=== PATIENT | female | born 1955 | race Caucasian/White ===

== ENCOUNTER 2017-12-18 13:00 | Observation (INO) ==
[2017-12-18 14:24] LABS: Basophils % 0.7 %; Eosinophils # 0.1 K/mcL (0.0-0.6); Eosinophils % 1.8 %; Hemoglobin 13.6 g/dL (11.5-15.4); Immature Granulocytes % 0.3 % (0-4); Lymphocytes # 1.8 K/mcL (0.6-4.6); Lymphocytes % 29.3 %; Mean Corpuscular HGB Conc 32.4 g/dL (31.6-35.5); Mean Corpuscular Hemoglobin 28.6 pg (28.0-33.3); Mean Corpuscular Volume 88.4 fL (83.0-100.0); Mean Platelet Volume 10.8 fL (9.4-12.4); Monocytes # 0.5 K/mcL (0.0-1.3); Monocytes % 7.6 %; Neutrophils # 3.7 K/mcL (1.6-8.9); Platelet Count 149 K/mcL (140-400); Red Blood Count 4.75 M/mcL (3.82-4.97); Red Cell Distribution Width 12.4 % (11.5-14.5); Segmented Neutrophils % 60.3 %
[2017-12-18 14:30] LABS: Troponin I < 0.03 ng/mL (< 0.04)
[2017-12-18 14:31] LABS: Alanine Aminotransferase 22 Units/L (7-52); Albumin 3.8 g/dL (3.5-5.7); Alkaline Phosphatase 137 Units/L (34-104); Aspartate Amino Transferase 26 Units/L (13-39); BUN/Creatinine Ratio 18 (6-26); Bilirubin,Total 0.5 mg/dL (0.3-1.0); Blood Urea Nitrogen 21 mg/dL (8-23); Calcium 9.4 mg/dL (8.6-10.3); Carbon Dioxide 26 mEq/L (23-29); Chloride 99 mEq/L (98-107); Globulin 3.7 g/dL (2.4-3.5); Glucose 167 mg/dL (70-105); Osmolality,Calculated 283 (280-300); Potassium 4.9 mEq/L (3.5-5.1); Sodium 133 mEq/L (136-145); Total Protein 7.5 g/dL (6.4-8.9); eGFR For African Americans 56 (> 60); eGFR For Non-African Americans 46 (> 60)
[2017-12-18 14:36] LABS: INR 1.1; Prothrombin Time 11.4 Seconds (9.4-12.1)
[2017-12-18 14:38] LABS: Activated Partial Thrombo Time 29.4 Seconds (26.0-36.0)
--- NOTE | 2017-12-18 16:53 | Emergency Department Note ---
Disposition Clinical Impression: Angina at rest, Lung nodule Chest pain Qualifiers: Chest pain type: unspecified Qualified Code(s): R07.9 - Chest pain, unspecified Disposition: Admitted As Inpatient Condition: Fair Referrals: Doug Spence DO [Primary Care Provider] - Forms: ED Satisfaction Letter Time of Disposition: 16:52 Chest Pain HPI - General Chief Complaint: ED Chest Pain Stated Complaint: chest pain Time Seen by Provider: 12/18/17 16:09 Source: patient, family Limitations: no limitations Vital Signs Reviewed: Yes Nursing Notes Reviewed: Yes - History of Present Illness HPI Narrative: Patient arrives from her PCPs office with chest pain intermittent for the past one week. She states this started after she had a heat exertion. Pain is both present at rest and with exertion. She has a history of multivessel CABG. She denies feeling short of breath. She states these are similar symptoms that preceded her CABG 2 years ago Pt complaint: chest pain Onset (ago): day(s) Duration: intermittent Onset: during rest, during exertion Pain Location: substernal Severity: moderate Severity scale (1-10): 4 Quality: tightness Pain Radiation: none Improves with: nitroglycerin Worsens with: exertion Treatments prior to arrival chest pain: nitroglycerin - Related Data Home Medications Medication Instructions Recorded Confirmed Atorvastatin [Lipitor] 40 mg PO HS 03/22/15 11/14/17 Clopidogrel [Plavix] 75 mg PO DAILY 03/22/15 11/14/17 Gabapentin [Neurontin] 300 mg PO TID 03/22/15 11/14/17 Insulin Glargine,Hum.rec.anlog 60 unit SQ BID 03/22/15 11/14/17 [Lantus Solostar] Fluticasone Propionate [Flovent 12 gm IH BID 03/31/15 11/14/17 Hfa] Pramipexole [Mirapex] 0.25 mg PO HS 03/31/15 11/14/17 Zolpidem [Ambien] 10 mg PO HS 03/31/15 11/14/17 Alendronate Sodium 70 mg PO QWEEK 06/17/15 11/14/17 Aspirin Enteric Coated [Aspirin EC] 81 mg PO DAILY 03/25/17 11/14/17 Carvedilol 12.5 mg PO BID 03/25/17 11/14/17 Citalopram Hydrobromide 40 mg PO DAILY 03/25/17 11/14/17 [Citalopram HBr] Ergocalciferol (VITAMIN D2) 50,000 unit PO QWEEK 03/25/17 11/14/17 [Vitamin D2] Nitroglycerin [Nitrostat] 0.4 mg SL AD 03/25/17 11/14/17 Omeprazole [PriLOSEC] 40 mg PO DAILY 03/25/17 11/14/17 Insulin ASPART [NovoLOG] 15 - 30 unit SQ TIDWM 07/17/17 11/14/17 MethylPREDNISolone 4 mg PO DAILY 11/14/17 11/14/17 [MethylPREDNISolone Dose Pack] Previous Rx's Medication Instructions Recorded traMADol [Ultram] 50 mg PO Q6HR PRN #14 tablet 09/10/15 Meclizine [Antivert] 25 mg PO QID #30 tablet 11/14/17 Ondansetron ODT [Zofran ODT] 4 mg PO Q8HR #14 tab.rapdis 11/14/17 Allergies Allergy/AdvReac Type Severity Reaction Status Date / Time promethazine [From Phenergan] Allergy Confusion Verified 12/18/17 13:03 venlafaxine [From Effexor] Allergy Nausea Verified 12/18/17 13:03 All systems ED: reviewed and negative except as stated. Constitutional: Reports: as per HPI Eyes: Reports: as per HPI ENT ED: Reports: as per HPI Cardiovascular: Reports: chest pain Respiratory: Reports: as per HPI Gastrointestinal: Reports: nausea (When exposed to the heat) Genitourinary: Reports: as per HPI Musculoskeletal: Reports: as per HPI Integumentary: Reports: as per HPI Neurological: Reports: headache (When exposed to the heat) Psychiatric: Reports: as per HPI Endocrine: Reports: as per HPI Hematological/Lymphatic: Reports: as per HPI Allergic/Immunologic: Reports: as per HPI Chest Pain PMH - Past Medical History Medical history: Reports: arthritis, cardiomyopathy, CHF, COPD, coronary artery disease, diabetes, hyperlipidemia, hypertension, myocardial infarction, renal disease, other Surgical history: Reports: angioplasty/stent, appendectomy, cholecystectomy, coronary bypass (CABG), hysterectomy, orthopedic, other Psychiatric history: Reports: anxiety, depression 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 - Social History Smoking Status: Never smoker Alcohol use: Reports: none Drug use: Reports: none Physical Exam - General Limitations: no limitations General appearance: alert - Head Head exam: atraumatic - Eye Eye exam: Present: normal appearance - ENT ENT exam: normal exam - Neck Neck exam: Present: normal inspection, full ROM - Chest Chest inspection: Present: normal inspection, symmetric chest wall rise - Respiratory Respiratory exam: Present: normal lung sounds bilaterally - Cardiovascular Cardiovascular exam: Present: regular rate, normal rhythm, normal heart sounds - Rectal Exam Rectal exam: Present: deferred - Extremities Exam Extremities exam: Present: other (Left lower extremity and immobilizing boot) - Neurological Exam Neurological exam: Present: alert, oriented X3, CN II-XII intact - Psychiatric Psychiatric exam: Present: normal affect, normal mood - Skin Skin exam: Present: warm, dry, intact Course Course Narrative: Patient presents to the emergency department with chest pain. Clinically this sounds like it has components of both stable and unstable angina. She has a previous history of coronary artery disease with multivessel CABG. EKG does not suggest acute STEMI. Labs reviewed by me. Chest x-ray reviewed by me. The patient has mild residual chest pain. I have requested admission based on her risk factors Although her left lower extremity is in an immobilizing fracture boot I do not feel the patient is experiencing a pulmonary embolus. She is not visibly dyspneic or conversationally dyspneic. She is not tachypneic or tachycardic. Vital Signs Temperature 97.6 F 12/18/17 13:04 Pulse Rate 76 12/18/17 13:04 Respiratory Rate 20 12/18/17 13:04 Blood Pressure 113/74 12/18/17 13:04 O2 Sat by Pulse Oximetry 96 12/18/17 13:04 Temperature 97.6 F 12/18/17 13:35 Pulse Rate 76 12/18/17 13:35 Respiratory Rate 20 12/18/17 13:35 Blood Pressure 113/74 12/18/17 13:35 O2 Sat by Pulse Oximetry 96 12/18/17 13:35 Oxygen Delivery Oxygen Delivery Room Air Chest Pain - Lab Data Lab results reviewed: Yes I reviewed the patient's lab results. Result diagrams: 12/18/17 13:44 12/18/17 13:44 Lab Results 12/18/17 12/18/17 12/18/17 Range/Units 13:44 13:44 13:44 WBC 6.2 (4.3-11.1) K/mcL RBC 4.75 (3.82-4.97) M/mcL Hgb 13.6 (11.5-15.4) g/dL Hct 42.0 (35.3-44.9) % MCV 88.4 (83.0-100.0) fL MCH 28.6 (28.0-33.3) pg MCHC 32.4 (31.6-35.5) g/dL RDW 12.4 (11.5-14.5) % Plt Count 149 (140-400) K/mcL MPV 10.8 (9.4-12.4) fL Immature Gran % 0.3 (0-4) % Seg Neutrophils % 60.3 % Lymphocytes % 29.3 % Monocytes % 7.6 % Eosinophils % 1.8 % Basophils % 0.7 % Neutrophils # 3.7 (1.6-8.9) K/mcL Lymphocytes # 1.8 (0.6-4.6) K/mcL Monocytes # 0.5 (0.0-1.3) K/mcL Eosinophils # 0.1 (0.0-0.6) K/mcL Basophils # 0.0 (0.0-0.2) K/mcL PT 11.4 (9.4-12.1) Seconds INR 1.1 APTT 29.4 (26.0-36.0) Seconds Sodium 133 L (136-145) mEq/L Potassium 4.9 (3.5-5.1) mEq/L Chloride 99 (98-107) mEq/L Carbon Dioxide 26 (23-29) mEq/L BUN 21 (8-23) mg/dL Creatinine 1.18 (0.60-1.20) mg/dL Est GFR ( Amer) 56 L (> 60) Est GFR (Non-Af Amer) 46 L (> 60) BUN/Creatinine Ratio 18 (6-26) Glucose 167 H (70-105) mg/dL Calculated Osmolality 283 (280-300) Calcium 9.4 (8.6-10.3) mg/dL Total Bilirubin 0.5 (0.3-1.0) mg/dL AST 26 (13-39) Units/L ALT 22 (7-52) Units/L Alkaline Phosphatase 137 H (34-104) Units/L Troponin I < 0.03 (< 0.04) ng/mL Serum Total Protein 7.5 (6.4-8.9) g/dL Albumin 3.8 (3.5-5.7) g/dL Globulin 3.7 H (2.4-3.5) g/dL Albumin/Globulin Ratio 1.0 L (1.1-2.2) - Radiology Data Radiology results reviewed: Yes I reviewed the patient's radiology results. - EKG Data EKG attestation: Yes I reviewed and interpreted this EKG. EKG results narrative: Normal sinus rhythm with left ventricular hypertrophy rate 76 P-R 153 QRS 94 QT/ QTC 384/414. ST segment depression with inverted T waves in lead [address] segment flattening in lead 2. Mild ST segment flattening in lead V5 and V6. Study compared to previous dated 11/14/17 Heart Score - Score History: Moderately Suspicious EKG: Non Specific repolarisation Disturbance Age: 45-65 Risk Factors: Equal/Greater than 3 risk factor or history of atherosclerotic disease Troponin: Less than normal limit HEART Score Total: 5
--- NOTE | 2017-12-18 18:36 | Electrocardiograph Report ---
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
[2017-12-18] MEDS ORDERED: Naloxone 0.4 MG/ML INJ IVP PRN (20:23)
[2017-12-18] MEDS ORDERED: Dextrose Gel 15 GM/37.5 ML TUBE PO PRN ×2 (20:27)
[2017-12-18] MEDS ORDERED: D5% in Water 1,000 ML IVC PRN (20:27)
[2017-12-18] MEDS ORDERED: *HR* Dextrose 50 % in Water (Syg) 50 ML SYRINGE IVP PRN (20:27)
[2017-12-18] MEDS: Insulin LISPRO 300 UNITS/3 ML VIAL SQ SCH (20:42)
[2017-12-18] MEDS: Nitroglycerin 0.4 MG TAB.SUBL SL SCH (20:42)
[2017-12-18] MEDS: Acetaminophen 325 MG TABLET PO PRN (20:52)
[2017-12-18] MEDS: Insulin DETEMIR 100 UNIT/ML X5UNITS SQ SCH (21:40)
--- NOTE | 2017-12-18 23:44 | Internal Med History&Physical ---
Date of Encounter: 12/18/17 Time of Encounter: 19:00 Internal Medicine - H&P: HPI Chief complaint: Chest pain Admitted From: Home Plans for Post Hospital Care: Home History of present illness: Ms. Astudillo is a 62 year old female present to ER for chest pain. Past medical history is significant for CAD S/P stent and CABG, hypertension, diabetes, breast cancer. Patient said she has chest pain on and off in last week. The chest pain located on mid chest, sharp, radiated to his right arm and right back. The pain is intermittent, lasts 30-40 minutes every episode, patient totally has 3 episode of chest pain in last week. Patient has nausea but no vomiting when she has chest pain. Patient has headache, shortness of breath, and diaphoresis when she has chest pain. The chest pain respond to sublingual nitroglycerin. When I saw patient, she is pain-free. Patient was admitted for chest pain rule out ACS. Past Med Surg Social Fam HX - Past Medical History Medical history: arthritis, cardiomyopathy, CHF, COPD, coronary artery disease, diabetes, hyperlipidemia, hypertension, myocardial infarction, renal disease, other Additional medical history: left broken foot. ULCER TO RIGHR FOOT. LEFT FOOT FX AND NOT HEALING WELL. Psychiatric history: anxiety, depression - Past Surgical History Surgical History: angioplasty/stent, appendectomy, cholecystectomy, coronary bypass (CABG), hysterectomy, orthopedic, other Additional surgical history: hardware placement to left foot. 2 CARDIAC STENTS - Social History Smoking Status: Never smoker Smokeless Tobacco Status: No Alcohol use: none Drug use: none - Family History Daughter Living Status: Still Living Internal Medicine - H&P: Meds Gabapentin [Neurontin] 300 mg PO TID 03/22/15 [History] Insulin Glargine,Hum.rec.anlog [Lantus Solostar] 40 unit SQ BID 03/22/15 [ History] Fluticasone Propionate [Flovent Hfa] 12 gm IH BID 03/31/15 [History] Alendronate Sodium 70 mg PO QWEEK 06/17/15 [History] Aspirin Enteric Coated [Aspirin EC] 81 mg PO DAILY 03/25/17 [History] Carvedilol 12.5 mg PO BID 03/25/17 [History] Citalopram Hydrobromide [Citalopram HBr] 40 mg PO DAILY 03/25/17 [History] Ergocalciferol (VITAMIN D2) [Vitamin D2] 50,000 unit PO QWEEK 03/25/17 [History] Nitroglycerin [Nitrostat] 0.4 mg SL AD 03/25/17 [History] Omeprazole [PriLOSEC] 40 mg PO DAILY 03/25/17 [History] Insulin ASPART [NovoLOG] 15 - 30 unit SQ TIDWM 07/17/17 [History] Meclizine [Antivert] 25 mg PO QID #30 tablet 11/14/17 [Rx] MethylPREDNISolone [MethylPREDNISolone Dose Pack] 4 mg PO DAILY 11/14/17 [ History] Ondansetron ODT [Zofran ODT] 4 mg PO Q8HR #14 tab.rapdis 11/14/17 [Rx] Allopurinol [Zyloprim 100 MG] 100 mg PO DAILY 12/18/17 [History] Atorvastatin [Lipitor] 40 mg PO DAILY 12/18/17 [History] Clopidogrel [Plavix] 75 mg PO DAILY 12/18/17 [History] Pramipexole [Mirapex] 0.25 mg PO HS 12/18/17 [History] Zolpidem Tartrate [Zolpidem Tartrate] 5 mg PO HS 12/18/17 [History] 3 Allergy/AdvReac Type Severity Reaction Status Date / Time promethazine [From Phenergan] Allergy Confusion Verified 12/18/17 17:33 venlafaxine [From Effexor] Allergy Nausea Verified 12/18/17 17:33 All Systems PM: A 10-system review of systems was performed and is negative for pertinent findings except as documented above in the HPI. - Constitutional Vitals: Temp Pulse Resp BP Pulse Ox 98.0 F 78 14 153/74 98 12/18/17 22:32 12/18/17 22:32 12/18/17 22:32 12/18/17 22:32 12/18/17 22:32 General appearance: Present: A&O X 3, no acute distress, answers questions appropriately - Head Head exam: Present: atraumatic, normocephalic - Eye Eye exam: Present: PERRL, conjuntiva pink, sclera anicteric Pupils: Present: PERRL - Neck Neck exam general surgery: Present: supple, trachea midline. Absent: lymphadenopathy - Respiratory Respiratory exam: Present: CTAB. Absent: accessory muscle use, rales, rhonchi, wheezes - Cardiovascular Cardiovascular exam: Present: RRR, +S1, +S2. Absent: diastolic murmur, gallop, rubs, systolic murmur - GI/Abdominal GI/Abdominal exam: Present: normal bowel sounds, soft, no peritoneal signs. Absent: distended, tenderness - Extremities Exam Extremities exam: Present: warm, radial pulses palpable and symmetrical. Absent : calf tenderness, cyanotic, pedal edema - Neurological Exam Neurological exam: Present: CN II-XII intact, oriented X3, no focal deficits. Absent: pronater drift, facial droop, speech deficit - Skin Skin exam: Present: dry, intact Internal Med - H&P Results - Labs CBC & Chem 7: 12/18/17 13:44 12/18/17 13:44 Labs: Cardiac Enzymes 12/18/17 Range/Units 20:30 Troponin I < 0.03 (< 0.04) ng/mL - EKG Data -: EKG Interpreted by Myself EKG shows normal: sinus rhythm Rate: normal - Assessment and plan (1) Chest pain Current Visit: Yes Status: Acute Assessment and plan: Patient has chest pain. The pain responded to nitroglycerin. Patient has history of CAD S/P stent and CABG. - Place patient on continuous cardiac monitoring - Track 3 sets of troponin - Stress test in a.m. if patient is pain-free and troponin is negative. Qualifiers: Chest pain type: unspecified Qualified Code(s): R07.9 - Chest pain, unspecified (2) CAD (coronary artery disease) Current Visit: Yes Status: Acute Assessment and plan: Continue home medication aspirin, Plavix, beta kole, and atorvastatin. NTG sublingual when necessary for chest pain. Further chest pain workup see above. Qualifiers: Coronary Disease-Associated Artery/Lesion type: bypass graft [place] vs. transplanted heart: [place] heart Associated angina: with unstable angina Qualified Code(s): I25.700 - Atherosclerosis of coronary artery bypass graft(s) , unspecified, with unstable angina pectoris (3) DVT prophylaxis Current Visit: Yes Status: Acute (4) Lung nodule Current Visit: Yes Status: Acute Assessment and plan: Suspect lung nodule on chest x-ray. 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
[2017-12-19] MEDS: Ondansetron ODT 4 MG TAB.RAPDIS PO SCH ×4 (00:16→23:15)
[2017-12-19 04:15] LABS: Basophils % 0.5 %; Eosinophils # 0.1 K/mcL (0.0-0.6); Eosinophils % 2.3 %; Hematocrit 35.4 % (35.3-44.9); Immature Granulocytes % 0.3 % (0-4); Immature Platelets 4.9 % (1.1-6.1); Lymphocytes % 33.3 %; Mean Corpuscular HGB Conc 33.9 g/dL (31.6-35.5); Mean Corpuscular Hemoglobin 28.9 pg (28.0-33.3); Mean Corpuscular Volume 85.3 fL (83.0-100.0); Mean Platelet Volume 11.3 fL (9.4-12.4); Monocytes # 0.5 K/mcL (0.0-1.3); Monocytes % 8.5 %; Neutrophils # 3.3 K/mcL (1.6-8.9); Nucleated Red Blood Cells 0.3 /100 WBC (0); Platelet Count 112 K/mcL (140-400); Red Blood Count 4.15 M/mcL (3.82-4.97); Red Cell Distribution Width 12.3 % (11.5-14.5); Segmented Neutrophils % 55.1 %
[2017-12-19 04:26] LABS: Calcium 8.9 mg/dL (8.6-10.3); Magnesium 1.4 mg/dL (1.6-2.6); Phosphorous 3.9 mg/dL (2.7-4.5); Potassium 3.9 mEq/L (3.5-5.1)
[2017-12-19] MEDS: *HR* Heparin 5,000 UNIT/ML VIAL SQ SCH ×2 (05:01→17:17)
[2017-12-19 05:39] LABS: Bilirubin,Urine Negative (Negative); Blood,Urine Small (Negative); Clarity,Urine Cloudy (Clear); Color,Urine Yellow (Yellow); Glucose,Urine (UA) Normal (Normal); Ketones,Urine Negative (Negative); Leukocyte Esterase,Urine Moderate (Negative); Nitrite,Urine Positive (Negative); PH,Urine 5.5 pH Units (5.0-8.0); Protein,Urine 30 mg/dL (Neg-Trace); Specific Gravity,Urine 1.015 (1.010-1.025); Urobilinogen,Urine Normal (Normal)
[2017-12-19 05:41] LABS: Bacteria,Urine Many per hpf (None-Few); Hyaline Casts,Urine None Seen per lpf (None-Few); Squamous Epithelial Cell,Urine Many per lpf (None-Few); WBC,Urine 15-30 per hpf (0-3)
[2017-12-19 05:52] LABS: RBC,Urine 0-3 per hpf (0-3)
[2017-12-19] MEDS ORDERED: Regadenoson 0.4 MG/5 ML SYRINGE IVP ONE (06:27)
[2017-12-19] MEDS: Insulin LISPRO 300 UNITS/3 ML VIAL SQ SCH ×4 (07:30→21:12)
[2017-12-19] MEDS ORDERED: 0.9 % Sodium Chloride 1,000 ML IVC SCH (08:45)
[2017-12-19] MEDS ORDERED: cefTRIAXone 1,000 MG in Water for inj. (sterile) 20 ML 10 ML IVP SCH (09:00)
[2017-12-19] MEDS ORDERED: Insulin DETEMIR 100 UNIT/ML X5UNITS SQ SCH ×2 (09:00)
[2017-12-19] MEDS: Aspirin Enteric Coated 81 MG Tablet PO SCH (10:51)
[2017-12-19] MEDS: Insulin DETEMIR 100 UNIT/ML X5UNITS SQ SCH ×2 (10:59→21:12)
--- NOTE | 2017-12-19 19:16 | Internal Med Progress Note ---
Date of Encounter: 12/19/17 Time of Encounter: 13:00 - Assessment and plan (1) Chest pain Current Visit: Yes Status: Acute Assessment and plan: Patient has chest pain. The pain responded to nitroglycerin. Patient has history of CAD S/P stent and CABG. - Place patient on continuous cardiac monitoring - Troponin negative 3 - She underwent the first half of 2 day stress test she will be nothing by mouth for second half in the a.m. 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 CT of chest with no pulmonary nodules- noted probable adrenal adenoma (4) CAD (coronary artery disease) Current Visit: Yes Status: Acute Assessment and plan: No chest pain at this time continue with aspirin and Plavix beta kole and statin Nitroglycerin as needed for chest pain Qualifiers: Coronary Disease-Associated Artery/Lesion type: bypass graft [place] vs. transplanted heart: [place] heart Associated angina: with unstable angina Qualified Code(s): I25.700 - Atherosclerosis of coronary artery bypass graft(s) , unspecified, with unstable angina pectoris (5) DVT prophylaxis Current Visit: Yes Status: Acute - Time Spent With Patient Total time spent is greater than 50% in coordination of care (as documented) at patient's floor/unit and/or counseling patient: - Subjective Interval history: Patient was seen and examined at bedside, she underwent a first half of 2 day stress test tolerated procedure well no chest pain this time - Constitutional Vitals: Temp Pulse Resp BP Pulse Ox 98.8 F 91 17 144/74 96 12/19/17 15:59 12/19/17 15:59 12/19/17 15:59 12/19/17 15:59 12/19/17 15:59 General appearance: Present: A&O X 3, no acute distress, answers questions appropriately - Head Head exam: Present: atraumatic, normocephalic - Eye Eye exam: Present: PERRL, conjuntiva pink, sclera anicteric Pupils: Present: PERRL - Neck Neck exam general surgery: Present: supple, trachea midline. Absent: lymphadenopathy - Respiratory Respiratory exam: Present: CTAB. Absent: accessory muscle use, rales, rhonchi, wheezes - Cardiovascular Cardiovascular exam: Present: RRR, +S1, +S2. Absent: diastolic murmur, gallop, rubs, systolic murmur - Extremities Exam Extremities exam: Present: warm, radial pulses palpable and symmetrical. Absent : calf tenderness, cyanotic, pedal edema - Neurological Exam Neurological exam: Present: CN II-XII intact, oriented X3, no focal deficits. Absent: pronater drift, facial droop, speech deficit - Skin Skin exam: Present: dry, intact Internal Medicine: Result - Labs CBC & Chem 7: 12/19/17 03:25 12/19/17 03:25 Labs: Short CBC 12/19/17 Range/Units 03:25 WBC 6.0 (4.3-11.1) K/mcL Hgb 12.0 D (11.5-15.4) g/dL Hct 35.4 (35.3-44.9) % Plt Count 112 L (140-400) K/mcL Neutrophils # 3.3 (1.6-8.9) K/mcL BMP 12/19/17 03:25 Sodium 132 L Potassium 3.9 Chloride 98 Carbon Dioxide 25 BUN 25 H Creatinine 1.22 H Glucose 255 H Calcium 8.9 Cardiac Enzymes 12/18/17 12/19/17 Range/Units 20:30 03:25 Troponin I < 0.03 < 0.03 (< 0.04) ng/mL Urine 12/19/17 Range/Units 03:05 Urine Color Yellow (Yellow) Urine Clarity Cloudy A (Clear) Urine pH 5.5 (5.0-8.0) pH Units Ur Specific Caret 1.015 (1.010-1.025) Urine Protein 30 H (Neg-Trace) mg/dL Urine Glucose (UA) Normal (Normal) mg/dL - ABG Interpretation ABG results: PT/INR, D-dimer PT 11.4 Seconds (9.4-12.1) 12/18/17 13:44 - Impressions Impressions Chest CT 12/18/17 21:00 IMPRESSION: No pulmonary nodules. No acute disease. Status post CABG. Left adrenal nodule noted incidentally probably represents an adrenal adenoma. . D/ / Robel Fields MD / Robel Fields MD Interpreting Provider: Robel Fields MD Consult Discharge Plan - Plan Referrals: Doug Spence, DO [Primary Care Provider] -
[2017-12-19] MEDS: Nitroglycerin 0.4 MG TAB.SUBL SL SCH (21:13)
[2017-12-20] MEDS: Acetaminophen 325 MG TABLET PO PRN ×2 (03:47→14:04)
[2017-12-20 06:25] LABS: BUN/Creatinine Ratio 19 (6-26); Blood Urea Nitrogen 17 mg/dL (8-23); Calcium 9.3 mg/dL (8.6-10.3); Carbon Dioxide 26 mEq/L (23-29); Chloride 106 mEq/L (98-107); Glucose 218 mg/dL (70-105); Osmolality,Calculated 294 (280-300); Potassium 4.7 mEq/L (3.5-5.1); Sodium 138 mEq/L (136-145); eGFR For African Americans > 60 (> 60); eGFR For Non-African Americans > 60 (> 60)
[2017-12-20] MEDS: *HR* Heparin 5,000 UNIT/ML VIAL SQ SCH ×2 (06:52→18:02)
[2017-12-20] MEDS: Aspirin Enteric Coated 81 MG Tablet PO SCH (09:28)
[2017-12-20] MEDS: Ondansetron ODT 4 MG TAB.RAPDIS PO SCH ×3 (09:28→23:35)
[2017-12-20] MEDS: Insulin LISPRO 300 UNITS/3 ML VIAL SQ SCH ×4 (09:29→20:27)
[2017-12-20] MEDS: Insulin DETEMIR 100 UNIT/ML X5UNITS SQ SCH ×2 (09:34→20:27)
--- NOTE | 2017-12-20 13:33 | Cardiology Consult Note ---
<Erick Marin - Last Filed: 12/20/17 14:32> Date of Encounter: 12/20/17 Time of Encounter: 13:30 Assessment and Plan (1) Abnormal nuclear stress test Current Visit: Yes Status: Acute Per Cardiology: Nuclear chest test results showed medium sized, moderate intensity, partially reversible defect involving the mid to apical anterior and anterolateral segments possibly due to ischemia. Patient experiencing increasing exertional chest pain with fatigue. I had lengthy discussion with patient and daughter and at this point the patient prefers to proceed with catheterization for further evaluation of her symptoms and her stress test. Patient discussed and reviewed with Dr. Kearney and Dr. Betancourt. Catheterization this afternoon. (2) CAD (coronary artery disease) Current Visit: Yes Status: Chronic Per Cardiology: Known history of CAD with last known heart catheterization October 2012 status post 2 drug-eluting stents to proximal LAD 70% lesion. Had remaining nonobstructive mid circumflex 20%, mid RCA 20%, and distal RCA 30% lesions. Patient also with CABG 1 in [place] in 2015. On aspirin, Plavix, statin, beta kole. Qualifiers: Coronary Disease-Associated Artery/Lesion type: bypass graft [place] vs. transplanted heart: [place] heart Associated angina: with unstable angina Qualified Code(s): I25.700 - Atherosclerosis of coronary artery bypass graft(s) , unspecified, with unstable angina pectoris Discussion w patient/family: The assessment and plan as outlined above was discussed with the patient and/or family members who expressed understanding and agreement. All questions were answered. Thank you for involving us in the care of your patient. Please call with any questions. History of Present Illness Consult date: 12/20/17 Requesting physician: Hanh Hernandez Consult reason: CP, Abnormal Stress Test Chief complaint: CP History of present illness: Ms. Astudillo is a 62 year old female with a relevant past medical history of CAD , hypertension, DM 2, CHF, dyslipidemia, BRAN, COPD with home oxygen, history of breast cancer, CK D. Last seen by cardiology February [address] Park with stress test and echo ordered that time. Patient has not followed up since. Cardiology consult for abnormal stress test results. Patient also reports history of CABG 1 in 2016 in [place]. Patient and daughter report rotation since surgery. She does report pending cardiology appointment in the next few weeks for follow-up. Patient reports over the past week or so expressing exertional chest pain with filling hot and flushed with some nausea. She reports this chest midsternal heaviness relieved with rest. She has utilized 4 nitroglycerin pills over the past one week, previously not utilizing. She does report increased fatigue as well. Of note patient does have limited mobility with left leg device and utilizes wheelchair home. Past Med Surg Social Fam HX - Past Medical History Attestation: Yes The following information was validated with the patient. Source: patient, old records reviewed Medical history: arthritis, cardiomyopathy, CHF, COPD, coronary artery disease, diabetes, hyperlipidemia, hypertension, myocardial infarction, renal disease, other Additional medical history: left broken foot. ULCER TO RIGHR FOOT. LEFT FOOT FX AND NOT HEALING WELL. Psychiatric history: anxiety, depression - Past Surgical History Surgical History: angioplasty/stent, appendectomy, cholecystectomy, coronary bypass (CABG), hysterectomy, orthopedic, other Additional surgical history: hardware placement to left foot. 2 CARDIAC STENTS - Social History Smoking Status: Never smoker Smokeless Tobacco Status: No Alcohol use: none Drug use: none - Family History Daughter Living Status: Still Living Medications and Allergies Gabapentin [Neurontin] 300 mg PO TID 03/22/15 [History] Insulin Glargine,Hum.rec.anlog [Lantus Solostar] 40 unit SQ BID 03/22/15 [ History] Fluticasone Propionate [Flovent Hfa] 12 gm IH BID 03/31/15 [History] Alendronate Sodium 70 mg PO QWEEK 06/17/15 [History] Aspirin Enteric Coated [Aspirin EC] 81 mg PO DAILY 03/25/17 [History] Carvedilol 12.5 mg PO BID 03/25/17 [History] Citalopram Hydrobromide [Citalopram HBr] 40 mg PO DAILY 03/25/17 [History] Ergocalciferol (VITAMIN D2) [Vitamin D2] 50,000 unit PO QWEEK 03/25/17 [History] Nitroglycerin [Nitrostat] 0.4 mg SL AD 03/25/17 [History] Omeprazole [PriLOSEC] 40 mg PO DAILY 03/25/17 [History] Insulin ASPART [NovoLOG] 15 - 30 unit SQ TIDWM 07/17/17 [History] Meclizine [Antivert] 25 mg PO QID #30 tablet 11/14/17 [Rx] MethylPREDNISolone [MethylPREDNISolone Dose Pack] 4 mg PO DAILY 11/14/17 [ History] Ondansetron ODT [Zofran ODT] 4 mg PO Q8HR #14 tab.rapdis 11/14/17 [Rx] Allopurinol [Zyloprim 100 MG] 100 mg PO DAILY 12/18/17 [History] Atorvastatin [Lipitor] 40 mg PO DAILY 12/18/17 [History] Clopidogrel [Plavix] 75 mg PO DAILY 12/18/17 [History] Pramipexole [Mirapex] 0.25 mg PO HS 12/18/17 [History] Zolpidem Tartrate [Zolpidem Tartrate] 5 mg PO HS 12/18/17 [History] 3 Allergy/AdvReac Type Severity Reaction Status Date / Time promethazine [From Phenergan] Allergy Confusion Verified 12/18/17 17:33 venlafaxine [From Effexor] Allergy Nausea Verified 12/18/17 17:33 All Systems Review: The remainder of the systems were reviewed and are negative - Constitutional Constitutional: fatigue - Cardiovascular Cardiovascular: as per HPI, chest pain with exertion - Gastrointestinal Gastrointestinal: nausea Physical Examination Vital Signs, Last 4 Hours Temp Pulse Resp BP Pulse Ox 12/20/17 11:31 98.6 F 74 17 143/73 95 General: Conversant, No Apparent Distress HEENT: Atraumatic, Normocephaly, Mucus Membranes Moist Neck: No JVD, Normal carotid pulses Cardiac: Reg Rate and Rhythm, Normal S1 and S2, No Murmur Lungs: Normal Breath Sounds, No Wheeze, Rales, Rhonchi Neuro: Alert and responsive, No focal deficits noted Abdomen: Soft, Non-Tender, Other (obese) Skin: No rashes noted on visualized skin Musculoskeletal: No Chest Wall Tenderness Extremities: No Clubbing, No Cyanosis, No Edema, Normal Pulses Results 12/19/17 03:25 12/20/17 05:27 Lab Results Laboratory Tests 12/18/17 12/18/17 12/18/17 13:44 13:44 20:30 Hgb Hct INR 1.1 Creatinine Est GFR (Non-Af Amer) Magnesium AST 26 ALT 22 Troponin I < 0.03 < 0.03 12/19/17 12/19/17 12/19/17 03:25 03:25 03:25 Hgb 12.0 D Hct 35.4 INR Creatinine Est GFR (Non-Af Amer) Magnesium 1.4 L AST ALT Troponin I < 0.03 12/20/17 12/20/17 05:27 05:27 Hgb Hct INR Creatinine 0.89 Est GFR (Non-Af Amer) > 60 Magnesium 1.7 AST ALT Troponin I ITS Impressions Chest X-Ray 12/18/17 13:06 IMPRESSION: 1. Post CABG changes with no acute pneumonia or pulmonary edema. 2. Nonspecific soft tissue density of the left upper lobe apex which could represent a possible nodule. Further evaluation with CT thorax without contrast is recommended. D/ / 12/18/2017 13:31:11 Jesus Contreras MD / [email or web address] Interpreting Provider: Jesus Contreras MD Chest CT 12/18/17 21:00 IMPRESSION: No pulmonary nodules. No acute disease. Status post CABG. Left adrenal nodule noted incidentally probably represents an adrenal adenoma. . D/ / Robel Fields MD / Robel Fields MD Interpreting Provider: Robel Fields MD Echocardiogram 12/19/17 08:41 Impressions: LVEF 60-65%. Not all LV segments were well visualized, but overall LVEF appears normal. Normal LV chamber size and wall thickness. Mild left ventricular diastolic dysfunction. Normal right ventricular structure and function. No evidence of pulmonary hypertension. No obvious significant valvular dysfunction. Findings: Study Quality * Technically sub-optimal due to poor echocardiographic windows. ECG Findings * Normal sinus rhythm. Left Ventricle * LVEF 60-65%. Not all LV segments were well visualized, but overall LVEF appears normal. * Normal LV chamber size and wall thickness. * Mild left ventricular diastolic dysfunction. Right Ventricle * Normal right ventricular structure and function. Left Atrium * Moderately dilated left atrium. Right Atrium * Mildly dilated right atrium. Aortic Valve * Aortic valve not well visualized. * No aortic regurgitation. * No aortic stenosis. Mitral Valve * Normal mitral valve structure and function. * No mitral regurgitation. * No mitral stenosis. Tricuspid Valve * Normal tricuspid valve structure and function. * Trace tricuspid regurgitation. * No evidence of pulmonary hypertension. Pulmonic Valve * Pulmonic valve not well visualized. Aorta * Normally sized aortic root. Pericardium * The pericardium appears normal. IVC * The IVC is not well evaluated. Pulmonary Artery * Pulmonary artery not well visualized. Active Medications Acetaminophen (Tylenol) 650 mg PO Q6HR PRN PRN Reason: Mild Pain/Fever Stop: 06/19/18 20:24 Last Admin: 12/20/17 03:47 Dose: 650 mg Aspirin (Aspirin Ec) 81 mg PO DAILY [facility] Stop: 06/20/18 09:01 Last Admin: 12/20/17 09:28 Dose: 81 mg Atorvastatin Calcium (Lipitor) 40 mg PO DAILY [facility] Stop: 06/20/18 09:01 Last Admin: 12/20/17 09:28 Dose: 40 mg Carvedilol (Coreg) 12.5 mg PO BID [facility] Stop: 06/19/18 21:01 Last Admin: 12/20/17 09:28 Dose: 12.5 mg Clopidogrel Bisulfate (Plavix) 75 mg PO DAILY [facility] Stop: 06/20/18 09:01 Last Admin: 12/20/17 09:28 Dose: 75 mg Dextrose/Water (Dextrose 50% (Syg)) 25 ml IVP AD PRN PRN Reason: Hypoglycemia Stop: 06/19/18 20:28 Glucagon (Glucagen) 1 mg IM ONCE PRN PRN Reason: Hypoglycemia Stop: 06/19/18 20:28 Glucose (Gluctose) 15 gm PO ONCE PRN PRN Reason: Hypoglycemia Stop: 06/19/18 20:28 Glucose (Gluctose) 30 gm PO ONCE PRN PRN Reason: Hypoglycemia Stop: 06/19/18 20:28 Heparin Sodium (Porcine) (Heparin) 5,000 unit SQ Q12HCO [facility] Stop: 06/20/18 06:01 Last Admin: 12/20/17 06:52 Dose: Not Given Dextrose (Dextrose 5%) 1,000 mls @ 100 mls/hr IVC .Q10H PRN PRN Reason: HYPOGLYCEMIA Stop: 06/19/18 20:28 Insulin Detemir (Levemir) 30 unit 0.25 unit/kg (30 unit) SQ BID [facility] Stop: 06/19/18 21:01 Last Admin: 12/20/17 09:34 Dose: 30 unit Insulin Human Lispro (Humalog) 0 units SQ HS BRITTNEY PRN Reason: Protocol Stop: 06/19/18 21:01 Last Admin: 12/19/17 21:12 Dose: 5 units Insulin Human Lispro (Humalog) 0 units SQ TIDAC BRITTNEY PRN Reason: Protocol Stop: 06/20/18 07:31 Last Admin: 12/20/17 09:29 Dose: Not Given Naloxone HCl (Narcan) 0.4 mg IVP Q2MIN PRN PRN Reason: SEE COMMENTS Stop: 06/19/18 20:24 Nitroglycerin (Nitroglycerin) 0.4 mg SL AD [facility] Stop: 06/19/18 20:31 Last Admin: 12/19/17 21:13 Dose: Not Given Omeprazole (Prilosec) 40 mg PO DAILY [facility] Stop: 06/20/18 09:01 Last Admin: 12/20/17 09:28 Dose: 40 mg Ondansetron HCl (Zofran Odt) 4 mg PO Q8HR [facility] Stop: 06/20/18 00:01 Last Admin: 12/20/17 09:28 Dose: 4 mg Zolpidem Tartrate (Ambien) 5 mg PO HS BRITTNEY PRN Reason: Protocol Stop: 06/19/18 21:01 Last Admin: 12/19/17 21:12 Dose: 5 mg - Imaging and Cardiology Stress Test: report reviewed Echo: report reviewed (Impressions: LVEF 60-65%. Not all LV segments were well visualized, but overall LVEF appears normal. Normal LV chamber size and wall thickness. Mild left ventricular diastolic dysfunction. Normal right ventricular structure and function. No evidence of pulmonary hypertension. No obvious significant valvular dysfunction.) - EKG Interpretation EKG results cardiology: other (no ECG on floor to review, ECGs in [facility] appear comparable to baseline) Consult Discharge Plan - Plan Referrals: Doug Spence DO [Primary Care Provider] - 12/26/17 1:15 pm <Donovan Betancourt - Last Filed: 12/20/17 16:07> Date of Encounter: 12/20/17 - Attending Attestation I have personally performed a face to face evaluation on this patient. I have reviewed and agree with the care plan. History and Exam by me shows: CC: Chest pain Pt complains of mid sternal chest pain, heaviness, pressure sensation, on and off for several weeks, most severe and prolonged yesterday, prompting admission. Pt reports longest chest pain lasted approx fifteen minutes. She has been pain free since hospital admission. She is currently pain free. ROS: reviewed as above PMH: reviewed PE: pt seen and examined, agree with documentation IMP: 1. Acute coronary syndrome, cresendo pain pattern, stress positive for reversible ischemia, recommend LHC/Poss, risks and benefits discussed, pt agrees to proceed, 2. CAD; Severe single vessel CAD, previous CABG x 1, Further recommendations pending results of LHC poss. Assessment and Plan Discussion w patient/family: The assessment and plan as outlined above was discussed with the patient and/or family members who expressed understanding and agreement. All questions were answered. Thank you for involving us in the care of your patient. Please call with any questions. History of Present Illness History of present illness: Ms. Astudillo is a 62 year old female All Systems Review: The remainder of the systems were reviewed and are negative Results 12/19/17 03:25 12/20/17 05:27 Lab Results 12/20/17 12/20/17 05:27 05:27 Sodium 138 Potassium 4.7 Chloride 106 Carbon Dioxide 26 BUN 17 Creatinine 0.89 Glucose 218 H Calcium 9.3 Magnesium 1.7
[2017-12-20] MEDS ORDERED: ISOVUE-370 200 ML INFUS..BTL IV ONE (14:20)
[2017-12-20] MEDS ORDERED: *HR* Heparin 10,000 UNIT/10 ML VIAL ONE (14:20)
[2017-12-20] MEDS ORDERED: 0.9 % Sodium Chloride 1,000 ML ONE ×2 (14:20→14:57)
[2017-12-20] MEDS ORDERED: Nitroglycerin 1,000 MCG/10 ML VIAL IV ONE (14:20)
[2017-12-20] MEDS ORDERED: Heparin 1,000 UNITS/500 mL 500 ML ONE (14:20)
[2017-12-20] MEDS ORDERED: *HR* FentaNYL (PF) 100 MCG/2 ML VIAL ONE (14:56)
[2017-12-20] MEDS ORDERED: *HR* Midazolam HCl 2 MG/2 ML VIAL ONE (14:56)
--- NOTE | 2017-12-20 14:57 | Pre-Sedation Evaluation ---
Pre-sedation evaluation - Pre-sedation checklist Date of procedure: 12/20/17 Procedure: Heart Cath Recent Vitals: Last Vital Signs Temp 98.6 F 12/20/17 11:31 Pulse 74 12/20/17 11:31 Resp 17 12/20/17 11:31 BP 143/73 12/20/17 11:31 Pulse Ox 95 12/20/17 11:31 H&P (including ROS) documented in medical record: Yes Previous reaction to sedatives/anesthetics: No Dietary Status: NPO after Midnight Dentition: No loose teeth or bridges ASA Classification *see protocol: CLASS II-Mild systemic disease Plan of Care: Pt appropriate candidate for procedure/moderate/conscious sedation , Risks/benefits of procedure/sedation discussed w/ patient/family
--- NOTE | 2017-12-20 16:20 | Event Note ---
Date of Encounter: 12/20/17 Time of Encounter: 16:20 - Cardiology Event Note Patent bypass, nonobstructive CAD. Ok to discharge after 8pm from cardio standpoint.
--- NOTE | 2017-12-20 18:14 | Invasive Diagnostic Lab Proc ---
Name: Fina Astudillo Date of Study: 12/20/2017 Date: 1955 Ht: 66.1in Medical Record#: [id number] Age: 62 Wt: 260.15lb Gender: Female BSA: 2.24 Order #: [id number] BMI: 41.81 Physicians Procedure Physician: Matias Kearney MD, [facility] Referring MD: Referring MD: Staff Name Position Time In Celsa Crawford RT (R) Scrub 02:50 PM Zane Yin RT (R) Monitor 02:50 PM Jaciel Estrella RN Monitor 02:50 PM Indications Indication Abnormal Test - Stress Procedures Performed Procedure L HRT ART/GRFT ANGIO IV Doppler BLD Flow 1st Vessel Pre-Procedure Checklist Informed consent is complete signed and on chart. H&P is on chart. ID band is on and ID verified with patient. Patient NPO for procedure The procedure was described for the patient and questions were answered. Blood Pressure: 157/79 ECG is on chart. Rhythm: NSR Plan of Care Patient will tolerate the procedure without complications. Adequate level of comfort will be maintained. Hemodynamics will remain stable Patient will recover from procedure without complications. Respiratory function will be maintained. Cardiac rhythm will remain stable. Patient temperature will be maintained. Patient and/or family have verbalized understanding of the procedure. Patient Education Chief Complaint/Reason for Test: Cardiac Cath Developmental Category: Adult (18-64 years) Developmentally Appropriate for Age: Yes Learning Barriers: None Education Needs: Procedure Education Method: Verbal Information Taught: Cardiac Cath Educational Evaluation: Able to repeat information Intravenous Access Time IV Size Location DC'd Fluid/Drip Rate Units RN 02:52 PM 20g 1 /" Patent On Arrival Lt Antecubital 0.9NaCl 25 ml/hr Jaciel Estrella RN Allergies venlafaxine SEROTONIN RE-UPTAKE INHIBITOR SSRI promethazine aspirin Phenergan EFFEXOR XR Vital Signs Time BP (mmHg) HR (bpm) O2 Sat. RR (bpm) LOC 02:52 PM 143 / 73 74 95 % 17 5 = Fully awake and oriented or at pre-proc level 02:55 PM 157 / 79 73 97 % 03:00 PM 160 / 75 73 99 % 03:05 PM 153 / 82 76 100 % 03:10 PM 123 / 65 72 97 % 03:15 PM 128 / 69 71 99 % 03:21 PM 144 / 83 72 98 % 03:25 PM 161 / 83 74 99 % 03:30 PM 159 / 78 75 98 % 03:35 PM 157 / 73 73 98 % 03:40 PM 129 / 72 72 98 % 03:46 PM 156 / 79 76 95 % 03:50 PM 159 / 73 71 99 % 03:55 PM 142 / 75 69 99 % 04:00 PM 139 / 77 88 99 % 04:15 PM 133 / 70 69 98 % 16 5 = Fully awake and oriented or at pre-proc level 04:34 PM 132 / 64 68 96 % 16 5 = Fully awake and oriented or at pre-proc level 04:45 PM 131 / 73 67 97 % 16 5 = Fully awake and oriented or at pre-proc level 05:00 PM 137 / 66 69 96 % 18 5 = Fully awake and oriented or at pre-proc level 05:30 PM 144 / 78 68 97 % 16 5 = Fully awake and oriented or at pre-proc level Procedural Medications Time Medication Dose Units Method Given By 02:59 PM Versed 2 mg Intravenous Jaciel Estrella RN 03:00 PM Fentanyl 50 mcg Intravenous Jaciel Estrella RN 03:18 PM Lidocaine 2% 20 ml Subcutaneous Matias Kearney MD, [facility] 03:35 PM Nitroglycerin 200 mcg Intracoronary Matias Kearney MD 03:41 PM Adenosine 991 ml/hr Intravenous Jaciel Estrella RN 03:47 PM Heparin 4000 units Intravenous Jaciel Estrella RN ASA Classification: CLASS III- Severe systemic disease (i.e. prior AMI, diabetes with vascular complications, morbid obesity) Stephanie Score Preprocedure Postprocedure Activity 2- Moves 4 extremities sustained head lift Activity 2- Moves 4 extremities sustained head lift Circulation 2- SBP +/= 20 points of pre-anesthetic level Circulation 2- SBP +/= 20 points of pre-anesthetic level Consciousness 2- Awake and alert oriented x 3 Consciousness 2- Awake and alert oriented x 3 O2 Saturation 2- Able to maintain O2 satruation of 92% on room air O2 Saturation 2- Able to maintain O2 satruation of 92% on room air Respiratory 2- Able to deep breathe and cough well Respiratory 2- Able to deep breathe and cough well Total Score 10 Total Score 10 Contrast Agent: Isovue Diagnostic Contrast: 68 ml Total Contrast: 68 ml Fluoro Dose: 338 mGy Activated Clotting Time Time Seconds to Clot 03:57 PM 200 Procedure Log Time Note Enter By :49 PM CathStat 02:49 PM Pt arrived to process laboratory specialist 1 at 14:49 :49 PM Patient charges- Angio tray pack, Navilyst 3mm J, Pulse Oximetry and ACIST tubing and transducer :49 PM Physician arrived 14:49 :49 PM Meet and greet completed :49 PM Sign in performed according to hospital policy. :49 PM Procedure start 14:49 :49 PM ASA Class CLASS III- Severe systemic disease (i.e. prior AMI, diabetes with vascular complications, morbid obesity) :49 PM Time: 14:49 Patient comfortable and pain free: Yes :50 PM Time: 14:49LOC: 5 = Fully awake and oriented or at pre-proc level 02:50 PM Case Delayed No 02:50 PM Celsa Crawford RT (R) Position: Scrub Time in: 14:50 :50 PM Zane Yin RT (R) Position: Monitor Time in: 14:50 :50 PM Jaciel Estrella RN Position: Monitor Time in: 14:50 02:54 PM Vitals capture started with the following parameters, Patient=Adult, Interval=5 min, Initial Plmkucoa=832 mmHg, Deflation Rate=3 mmHg, Cuff placed on Right Arm 02:55 PM Hair removed from procedure site in procedure lab using clippers. Bilateral groin prepped with Chloraprep by Celsa Crawford RT (R), then patient was draped. Skin intact. :55 PM HR=73 bpm, OUDO=162/79 mmhg, SpO2=97.0 % 02:57 PM Recorded ECG: HR=72 Condition=Condition 1 03:00 PM Time: 14:59 Versed 2 mg Intravenous Given by Jaciel Estrella RN 03:00 PM Time: 15:00 Fentanyl 50 mcg Intravenous Given by Jaciel Estrella RN 03:00 PM HR=73 bpm, DOWF=919/75 mmhg, SpO2=99.0 % 03:05 PM HR=76 bpm, JYWK=598/82 mmhg, NiY9=258.0 % 03:10 PM HR=72 bpm, DVSG=365/65 mmhg, SpO2=97.0 % 03:15 PM HR=71 bpm, OVXG=675/69 mmhg, SpO2=99.0 % 03:19 PM Time: 15:18 20 ml Lidocaine 2% to right groin Subcutaneous Given by [email or web address] 03[facility]19 PM Pressure channel 1 zeroed. 03:20 PM Access obtained by percutaneous puncture. 5Fr 10cm Terumo Keystone sheath placed in right Femoral artery. [id number] [email or web address] 03:20 PM 0.035 145cm Navilyst 3mmJ wire [id number] [email or web address] 03:20 PM 5Fr FR 4 catheter inserted over the wire [facility] [email or web address] 03:21 PM HR=72 bpm, AZWH=492/83 mmhg, SpO2=98.0 % 03:21 PM Recorded Pressure: Ao, HR=73, Condition=Condition 1 (Aorta) Ao 150/71/103 03:21 PM Left OSCAR to the LAD angio performed in multiple views. [email or web address] 03:23 PM RCA angiography performed in multiple views. [email or web address] 03:23 PM Coronary Dominance: right [email or web address] 03:23 PM Recorded Pressure: Ao, HR=70, Condition=Condition 1 (Aorta) Ao 162/88/118 03:24 PM Catheter removed [email or web address] 03:25 PM 5Fr FL 4 catheter inserted over the wire [facility] [email or web address] 03:25 PM Lesion found in Right PDA. Pre Stenosis: 50 Pre TERELL Flow: [email or web address] 03:25 PM Right Coronary, Right Posterior Descending Arteries with Right Posterolateral and Acute Marginal branches with 50 % stenosis. If graft is supplying this area, 0 % stenosis [email or web address] 03:25 PM HR=74 bpm, DSZH=394/83 mmhg, SpO2=99.0 % 03:25 PM Lesion found in PLV. Pre Stenosis: 30 Pre TERELL Flow: [email or web address] 03:26 PM LCA angiography performed in multiple views. [email or web address] 03:26 PM Recorded Pressure: Ao, HR=76, Condition=Condition 1 (Aorta) Ao 148/34/80 03:27 PM Lesion found in Proximal LAD. Pre Stenosis: 100 Pre TERELL Flow: [email or web address] 03:27 PM Proximal Left Anterior Descending Coronary Artery with 100% stenosis. If graft is supplying this territory, 0 % stenosis. [email or web address] 03:27 PM Lesion found in Ramus. Pre Stenosis: 70 Pre TERELL Flow: [email or web address] 03:29 PM Catheter removed [email or web address] 03:29 PM 5Fr Pigtail catheter inserted over the wire [facility] [email or web address] 03:29 PM Catheter selectively placed in left ventricle [email or web address] 03:29 PM Recorded Pressure: LV, HR=78, Condition=Condition 1 (Left Ventricle) LV 157/14/16 03:29 PM Bolus angiogram of left Ventricle complete: 10 ml/sec for a total of 20 mls [email or web address] 03:30 PM Recorded Pressure: LV, Ao, HR=80, Condition=Condition 1 (Left Ventricle) LV 166/-2/9, (Aorta) Ao 146/61/92 03:30 PM Catheter removed [email or web address] 03:30 PM HR=75 bpm, QRQQ=713/78 mmhg, SpO2=98.0 % 03:31 PM 5Fr JR 4 Convey guide catheter was used to cannulate the PCI vessel successfully. reused? No [email or web address] 03:32 PM Guide catheter removed intact. [email or web address] 03:33 PM 5Fr JL4 Convey guide catheter was used to cannulate the PCI vessel successfully. reused? No [email or web address] 03:34 PM Inflation device was opened. [email or web address] 03:35 PM Time: 15:35 Nitroglycerin 200 mcg Intracoronary Given by Matias Kearney MD [email or web address] 03:35 PM HR=73 bpm, OJGZ=248/73 mmhg, SpO2=98.0 % 03:36 PM .[address] [place] 190cm guide wire across target lesion- successful. reused? No [email or web address] 03:37 PM Pressure channel 1 zeroed. 03:40 PM Pressure channel 1 zeroed. 03:40 PM HR=72 bpm, VPLY=626/72 mmhg, SpO2=98.0 % 03:41 PM Asist FFR Catheter advanced to target lesion. [email or web address] 03:42 PM Time: 15:41 Adenosine 991 ml/hr administered Intravenous by Jaciel Estrella RN [email or web address] 03:44 PM adenosine off [email or web address] 03:44 PM FFR Measurement: 0.81 [email or web address] 03:45 PM Flow Wire/Catheter removed intact [email or web address] 03:45 PM Guide wire removed intact. [email or web address] 03:46 PM HR=76 bpm, VMTS=709/79 mmhg, SpO2=95.0 % 03:46 PM Guide catheter removed intact. [email or web address] 03:47 PM 5Fr JR 4 Convey guide catheter was used to cannulate the PCI vessel successfully. reused? No [email or web address] 03:47 PM Time: 15:47 Heparin 4000 units Intravenous Given by Jaciel Estrella RN [email or web address] 03:48 PM Guide catheter removed intact. [email or web address] 03:49 PM Recorded Pressure: Ao, HR=74, Condition=Condition 1 (Aorta) Ao 169/76/108 03:50 PM clot in sheath. [email or web address] 03:50 PM HR=71 bpm, ZMVB=387/73 mmhg, SpO2=99.0 % 03:50 PM Procedure completed at 15:50 [email or web address] 03:51 PM Sign out completed: Radiation Dose 338.37 mGy Fluoro Time: 5.1 Isovue 370 - 200ml contrast 68 ml given by Matias Kearney MD, [facility]. Complications: NoneCardiac Rehab Consult needed: NoConfirmed administered medications: Yes [email or web address] 03:51 PM Estimated Blood Loss: less than 20cc [email or web address] 03:51 PM Post ECG NSR [email or web address] 03:51 PM Post Blood Pressure 159/73 [email or web address] 03:52 PM Information taught Cardiac Cath and IVUS/Flowire [email or web address] 03:52 PM Education needs Procedure, Plan of Care, and Disease Process [email or web address] 03:52 PM Learning barriers :Sedated [email or web address] 03:52 PM Education Methods Verbal [email or web address] 03:52 PM Education evaluation Not ready to learn [email or web address] 03:52 PM Delay to floor No [email or web address] 03:52 PM Complications: None [email or web address] 03:52 PM Fluoro Time: 5.1 [email or web address] 03:52 PM Isovue 370 - 200ml contrast 68 ml given by . [email or web address] 03:52 PM Radiation Dose 338.37 mGy [email or web address] 03:53 PM drawing act [email or web address] 03:55 PM HR=69 bpm, JNCN=501/75 mmhg, SpO2=99.0 % 03:56 PM Family placed in consult room. [email or web address] 03:57 PM act 200 [email or web address] 04:00 PM HR=88 bpm, JIUV=528/77 mmhg, SpO2=99.0 % 04:01 PM Vitals capture stopped. 04:02 PM Report given to jarred SALAZAR Pt taken to Holding room Room #2. 16:01 [email or web address] 04:03 PM Site status No bleeding/hematoma - Rt Groin as reported by Celsa Crawford RT (R) at 16:03 [email or web address] 04:03 PM Opsite applied [email or web address] 04:03 PM Sheath left in place to be pulled on floor/holding areaV+Pad [email or web address] 04:05 PM 16:04 Post Pulses Bilateral DP & PT 1+ [email or web address] 05:20 PM Arterial sheath pulled using manual compression and V+ Pad for 15 minutes by Jaciel Estrella RN tsites 05:40 PM Site status No bleeding/hematoma - Rt Groin as reported by Jaciel Estrella RN at 18:05 tsites 05:40 PM Opsite applied tsites 05:45 PM Report given to RN Pt taken to 3B Room #36. 17:45 tsites Complications Complication None None Hemodynamics Pressures Site Systolic/A Wave Diastolic/V Wave Mean AO 150 71 103 AO 162 88 118 AO 148 34 80 LV 157 14 16 LV 166 -2 9 AO 146 61 92 AO 169 76 108 Post Procedure Information Blood Pressure: 159/73 mmHg Rhythm: NSR Post procedural instructions were given Site Checks Time Location Status Staff Sheath In? Note 04:03 PM Rt Groin No bleeding/hematoma Celsa Crawford RT (R) Yes 04:15 PM Rt Groin No bleeding/ No Hematoma Jarred Augirre RN Yes 04:33 PM Rt Groin No bleeding/ No Hematoma Ernestina, Gisselle RT (R) Yes 04:45 PM Rt Groin No bleeding/ No Hematoma Jarred Aguirre RN Yes 05:00 PM Rt Groin No bleeding/ No Hematoma Jarred Aguirre RN Yes 05:28 PM Rt Groin No bleeding/ No Hematoma Jaciel Estrella RN 5 Vietnamese sheath pulled, manual pressure held for 15 minutes, right groin, no complications, tegaderm applied to right groin 06:05 PM Rt Groin No bleeding/hematoma Jaciel Estrella RN Pulses Time Site Pre-Procedure Post-Procedure Note 12/20/2017 2:52:00 PM Bilateral radial 2+ 12/20/2017 2:52:00 PM Bilateral DP & PT 1+ 4:04:00 PM Bilateral DP & PT 1+ 12/20/2017 4:15:00 PM Bilateral DP & PT 1+ 12/20/2017 4:34:00 PM Bilateral DP & PT 1+ 12/20/2017 5:00:00 PM Bilateral DP & PT 1+ Updated by Gisselle Do RT (R) on 12/20/2017 6:06:55 PM Gisselle Do RT electronically signed on 12/20/2017 6:07:30 PM with status of Final
--- NOTE | 2017-12-20 19:43 | Internal Med Progress Note ---
Date of Encounter: 12/20/17 Time of Encounter: 12:00 - Assessment and plan (1) Chest pain Current Visit: Yes Status: Acute Assessment and plan: Patient underwent cardiac stress test today which did show an abnormality Medium sized, moderate intensity, partially reversible defect involving the mid to apical anterior and anterolateral segments possibly due to ischemia She did undergo a catheterization. 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 CT of chest with no pulmonary nodules- noted probable adrenal adenoma-we will have patient follow-up as outpatient (4) CAD (coronary artery disease) Current Visit: Yes Status: Chronic Assessment and plan: No chest pain at this time continue with aspirin and Plavix beta kole and statin Nitroglycerin as needed for chest pain Continue his cardiac monitoring Qualifiers: Coronary Disease-Associated Artery/Lesion type: bypass graft [place] vs. transplanted heart: [place] heart Associated angina: with unstable angina Qualified Code(s): I25.700 - Atherosclerosis of coronary artery bypass graft(s) , unspecified, with unstable angina pectoris (5) DVT prophylaxis Current Visit: Yes Status: Acute Assessment and plan: Heparin subcutaneous - Time Spent With Patient Total time spent is greater than 50% in coordination of care (as documented) at patient's floor/unit and/or counseling patient: - Subjective Interval history: Patient was seen and examined at bedside earlier this a.m., she underwent second half of stress test today it did show an abnormality medium-sized moderate intensity partially reversible defect involving the mid to apical anterior and anterior lateral segments possibly due to ischemia. I did notify Dr. Betancourt patient is to go for cardiac catheterization this afternoon patient was made aware, verbalized understanding - Constitutional Vitals: Temp Pulse Resp BP Pulse Ox 98.2 F 70 18 153/83 100 12/20/17 18:01 12/20/17 18:45 12/20/17 18:45 12/20/17 18:45 12/20/17 18:45 General appearance: Present: A&O X 3, no acute distress, answers questions appropriately - Head Head exam: Present: atraumatic, normocephalic - Eye Eye exam: Present: PERRL, conjuntiva pink, sclera anicteric Pupils: Present: PERRL - Neck Neck exam general surgery: Present: supple, trachea midline. Absent: lymphadenopathy - Respiratory Respiratory exam: Present: CTAB. Absent: accessory muscle use, rales, rhonchi, wheezes - Cardiovascular Cardiovascular exam: Present: RRR, +S1, +S2. Absent: diastolic murmur, gallop, rubs, systolic murmur - GI/Abdominal GI/Abdominal exam: Present: normal bowel sounds, soft, no peritoneal signs. Absent: distended, tenderness - Extremities Exam Extremities exam: Present: warm, radial pulses palpable and symmetrical. Absent : calf tenderness, cyanotic, pedal edema - Neurological Exam Neurological exam: Present: CN II-XII intact, oriented X3, no focal deficits. Absent: pronater drift, facial droop, speech deficit - Skin Skin exam: Present: dry, intact Internal Medicine: Result - Labs CBC & Chem 7: 12/19/17 03:25 12/20/17 05:27 Labs: BMP 12/20/17 05:27 Sodium 138 Potassium 4.7 Chloride 106 Carbon Dioxide 26 BUN 17 Creatinine 0.89 Glucose 218 H Calcium 9.3 - ABG Interpretation ABG results: PT/INR, D-dimer PT 11.4 Seconds (9.4-12.1) 12/18/17 13:44 - Impressions Impressions Echocardiogram 12/19/17 08:41 Impressions: LVEF 60-65%. Not all LV segments were well visualized, but overall LVEF appears normal. Normal LV chamber size and wall thickness. Mild left ventricular diastolic dysfunction. Normal right ventricular structure and function. No evidence of pulmonary hypertension. No obvious significant valvular dysfunction. Findings: Study Quality * Technically sub-optimal due to poor echocardiographic windows. ECG Findings * Normal sinus rhythm. Left Ventricle * LVEF 60-65%. Not all LV segments were well visualized, but overall LVEF appears normal. * Normal LV chamber size and wall thickness. * Mild left ventricular diastolic dysfunction. Right Ventricle * Normal right ventricular structure and function. Left Atrium * Moderately dilated left atrium. Right Atrium * Mildly dilated right atrium. Aortic Valve * Aortic valve not well visualized. * No aortic regurgitation. * No aortic stenosis. Mitral Valve * Normal mitral valve structure and function. * No mitral regurgitation. * No mitral stenosis. Tricuspid Valve * Normal tricuspid valve structure and function. * Trace tricuspid regurgitation. * No evidence of pulmonary hypertension. Pulmonic Valve * Pulmonic valve not well visualized. Aorta * Normally sized aortic root. Pericardium * The pericardium appears normal. IVC * The IVC is not well evaluated. Pulmonary Artery * Pulmonary artery not well visualized. Consult Discharge Plan - Plan Referrals: Doug Spence, [Primary Care Provider] - 12/26/17 1:15 pm
[2017-12-20] MEDS: Nitroglycerin 0.4 MG TAB.SUBL SL SCH (20:19)
[2017-12-21] MEDS: *HR* Heparin 5,000 UNIT/ML VIAL SQ SCH (06:04)
[2017-12-21 06:24] LABS: Basophils % 0.4 %; Eosinophils # 0.2 K/mcL (0.0-0.6); Eosinophils % 3.3 %; Hematocrit 34.8 % (35.3-44.9); Hemoglobin 11.7 g/dL (11.5-15.4); Immature Granulocytes % 0.2 % (0-4); Lymphocytes # 1.7 K/mcL (0.6-4.6); Lymphocytes % 32.3 %; Mean Corpuscular HGB Conc 33.6 g/dL (31.6-35.5); Mean Corpuscular Hemoglobin 28.9 pg (28.0-33.3); Mean Corpuscular Volume 85.9 fL (83.0-100.0); Mean Platelet Volume 10.6 fL (9.4-12.4); Monocytes # 0.5 K/mcL (0.0-1.3); Monocytes % 8.6 %; Neutrophils # 2.9 K/mcL (1.6-8.9); Platelet Count 124 K/mcL (140-400); Red Blood Count 4.05 M/mcL (3.82-4.97); Red Cell Distribution Width 12.3 % (11.5-14.5); Segmented Neutrophils % 55.2 %
[2017-12-21 06:43] LABS: BUN/Creatinine Ratio 19 (6-26); Blood Urea Nitrogen 15 mg/dL (8-23); Calcium 8.9 mg/dL (8.6-10.3); Carbon Dioxide 25 mEq/L (23-29); Chloride 102 mEq/L (98-107); Glucose 266 mg/dL (70-105); Osmolality,Calculated 286 (280-300); Potassium 4.5 mEq/L (3.5-5.1); Sodium 133 mEq/L (136-145); eGFR For African Americans > 60 (> 60); eGFR For Non-African Americans > 60 (> 60)
[2017-12-21 07:48] VITALS: BP 149/76
[2017-12-21] MEDS: Insulin DETEMIR 100 UNIT/ML X5UNITS SQ SCH (08:07)
[2017-12-21] MEDS: Acetaminophen 325 MG TABLET PO PRN (08:09)
[2017-12-21] MEDS: Insulin LISPRO 300 UNITS/3 ML VIAL SQ SCH (08:10)
[2017-12-21] MEDS: Ondansetron ODT 4 MG TAB.RAPDIS PO SCH (08:10)
[2017-12-21] MEDS: Aspirin Enteric Coated 81 MG Tablet PO SCH (08:10)
--- NOTE | 2017-12-21 09:20 | Discharge Summary ---
- NOTES TO OUTPATIENT PROVIDER Notes to Outpatient Provider: CT of chest completed which did show a incidental [id number] left adrenal nodule, further follow up with endocrine as outpatient. underwent cardiac cath- No stents -Nonobstructive CAD Orders not resulted at time of discharge: Pending orders 12/19/17 09:24 NM anthony perf SPECT multi [NM] Routine Date of Encounter: 12/21/17 Time of Encounter: 09:17 - Discharge Diagnosis (1) Chest pain Priority: Primary Status: Acute Qualifiers: Chest pain type: unspecified Qualified Code(s): R07.9 - Chest pain, unspecified (2) DM type 2 (diabetes mellitus, type 2) Priority: Secondary Status: Chronic Qualifiers: Diabetes mellitus half-way insulin use: with superintendent terminal use Diabetes mellitus complication status: without complication Qualified Code(s): E11.9 - Type 2 diabetes mellitus without complications; Z79.4 - skilled nursing (current) use of insulin (3) Lung nodule Priority: Secondary Status: Acute (4) CAD (coronary artery disease) Priority: Secondary Status: Chronic Qualifiers: Coronary Disease-Associated Artery/Lesion type: bypass graft [place] vs. transplanted heart: [place] heart Associated angina: with unstable angina Qualified Code(s): I25.700 - Atherosclerosis of coronary artery bypass graft(s) , unspecified, with unstable angina pectoris Hospital course: Ms. Astudillo is a 62 year old female past medical hx of CAD with stents and CABG HTN DM breast cancer, Has been experiencing CP located mid chest sharp radiating to R arm and back. Intermittent lasting 30-40 min and resolving off and onn all week. Troponin negative x3 CXR showed possible lung nodule CT of chest with no lung nodule incidental [id number] adrenal adenoma. Underwent cardiac cath no stent nonobstructive CAD. She will follow up with inclusion special education teacher as outpatient Advised to follow up with PCP concerning adenoma for further workup and possible endocrine consult. Advised to contiue home medications patient verbalized understanding She is hemodynamically stable and ready for discharge Discharge discussed with: patient - Time Spent with Patient Total time spent providing and/or coordinating discharge services: - Discharge Medications Home Medications: Gabapentin [Neurontin] 300 mg PO TID 03/22/15 [History] Insulin Glargine,Hum.rec.anlog [Lantus Solostar] 40 unit SQ BID 03/22/15 [ History] Fluticasone Propionate [Flovent Hfa] 12 gm IH BID 03/31/15 [History] Alendronate Sodium 70 mg PO QWEEK 06/17/15 [History] Aspirin Enteric Coated [Aspirin EC] 81 mg PO DAILY 03/25/17 [History] Carvedilol 12.5 mg PO BID 03/25/17 [History] Citalopram Hydrobromide [Citalopram HBr] 40 mg PO DAILY 03/25/17 [History] Ergocalciferol (VITAMIN D2) [Vitamin D2] 50,000 unit PO QWEEK 03/25/17 [History] Nitroglycerin [Nitrostat] 0.4 mg SL AD 03/25/17 [History] Omeprazole [PriLOSEC] 40 mg PO DAILY 03/25/17 [History] Insulin ASPART [NovoLOG] 15 - 30 unit SQ TIDWM 07/17/17 [History] Meclizine [Antivert] 25 mg PO QID #30 tablet 11/14/17 [Rx] MethylPREDNISolone [MethylPREDNISolone Dose Pack] 4 mg PO DAILY 11/14/17 [ History] Ondansetron ODT [Zofran ODT] 4 mg PO Q8HR #14 tab.rapdis 11/14/17 [Rx] Allopurinol [Zyloprim 100 MG] 100 mg PO DAILY 12/18/17 [History] Atorvastatin [Lipitor] 40 mg PO DAILY 12/18/17 [History] Clopidogrel [Plavix] 75 mg PO DAILY 12/18/17 [History] Pramipexole [Mirapex] 0.25 mg PO HS 12/18/17 [History] Zolpidem Tartrate [Zolpidem Tartrate] 5 mg PO HS 12/18/17 [History] Allergies/Adverse Reactions: 3 Allergy/AdvReac Type Severity Reaction Status Date / Time promethazine [From Phenergan] Allergy Confusion Verified 12/18/17 17:33 venlafaxine [From Effexor] Allergy Nausea Verified 12/18/17 17:33 Date of admission: 12/18/17 17:17 Primary care physician: Doug Spence DO Discharging clinician: Hanh Hernandez Anticipated date of discharge: 12/21/17 - Constitutional Vitals: Temp Pulse Resp BP Pulse Ox 98.4 F 76 18 149/76 92 12/21/17 07:46 12/21/17 07:46 12/21/17 07:46 12/21/17 07:46 12/21/17 07:46 General appearance: Present: A&O X 3, no acute distress, answers questions appropriately - Head Head exam: Present: atraumatic, normocephalic - Eye Eye exam: Present: PERRL, conjuntiva pink, sclera anicteric Pupils: Present: PERRL - Neck Neck exam general surgery: Present: supple, trachea midline. Absent: lymphadenopathy - Respiratory Respiratory exam: Present: CTAB. Absent: accessory muscle use, rales, rhonchi, wheezes - Cardiovascular Cardiovascular exam: Present: RRR, +S1, +S2. Absent: diastolic murmur, gallop, rubs, systolic murmur - GI/Abdominal GI/Abdominal exam: Present: normal bowel sounds, soft, no peritoneal signs. Absent: distended, tenderness - Extremities Exam Extremities exam: Present: warm, radial pulses palpable and symmetrical. Absent : calf tenderness, cyanotic, pedal edema - Neurological Exam Neurological exam: Present: CN II-XII intact, oriented X3, no focal deficits. Absent: pronater drift, facial droop, speech deficit - Skin Skin exam: Present: dry, intact - Patient Status Disposition: Home, Self-Care Condition: Fair Functional capacity at discharge: independent ambulation Overall status at discharge: patient is back to baseline - Discharge Instructions Follow Up With: Doug Spence DO [Primary Care Provider] - 12/26/17 1:15 pm Hanh Hernandez, NETWORK M[facility] [Advanced Practice Nurse] - - Diet and Activity Activity: increase activity as tolerated Diet: low fat, low cholesterol
[2017-12-21] MEDS ORDERED: Adenosine 90 MG/30 ML MLS IV ONE (12:39)
== END 2017-12-21 12:40 | disposition home or self-care (01) ==
LOC: EMEROO 13:00 → 3BNU 13:00
PROVIDERS: ADMIT Internal Medicine; ATTEND Internal Medicine

== ENCOUNTER 2020-10-09 18:19 | Observation (INO) ==
[2020-10-09] MEDS ORDERED: Naloxone 0.4 MG/ML INJ IVP PRN (21:27)
[2020-10-09] MEDS ORDERED: Melatonin 3 MG TABLET PO PRN (21:27)
[2020-10-09] MEDS: Ringers Solution, Lactated 1,000 ML IVC SCH (22:18)
[2020-10-09] MEDS ORDERED: Ipratropium/Albuterol Neb 3 ML IH PRN (22:20)
[2020-10-09 22:31] LABS: Calcium 8.2 mg/dL (8.6-10.3); Potassium 5.4 mEq/L (3.5-5.1)
[2020-10-09] MEDS ORDERED: *HR* Dextrose 50 % in Water (Vial) 50 ML VIAL IVP PRN (23:28)
[2020-10-09] MEDS ORDERED: D5% in Water 1,000 ML IVC PRN (23:28)
[2020-10-09] MEDS ORDERED: Dextrose Gel 15 GM/37.5 ML TUBE PO PRN ×2 (23:28)
[2020-10-10 00:31] LABS: Basophils % 0.4 %; Eosinophils # 0.1 K/mcL (0.0-0.6); Eosinophils % 1.7 %; Hematocrit 33.9 % (35.3-44.9); Hemoglobin 10.8 g/dL (11.5-15.4); Immature Granulocytes % 0.3 % (0-4); Lymphocytes # 1.5 K/mcL (0.6-4.6); Lymphocytes % 21.1 %; Mean Corpuscular HGB Conc 31.9 g/dL (31.6-35.5); Mean Corpuscular Hemoglobin 27.2 pg (28.0-33.3); Mean Corpuscular Volume 85.4 fL (83.0-100.0); Monocytes # 0.4 K/mcL (0.0-1.3); Monocytes % 6.1 %; Neutrophils # 5.1 K/mcL (1.6-8.9); Nucleated Red Blood Cells 0.3 /100 WBC (0); Platelet Count 142 K/mcL (140-400); Red Blood Count 3.97 M/mcL (3.82-4.97); Red Cell Distribution Width 13.6 % (11.5-14.5); Segmented Neutrophils % 70.4 %; White Blood Count 7.3 K/mcL (4.3-11.1)
[2020-10-10 00:59] LABS: Albumin 3.1 g/dL (3.5-5.7); Bilirubin,Total 0.4 mg/dL (0.3-1.0); Calcium 8.2 mg/dL (8.6-10.3); Globulin 3.1 g/dL (2.4-3.5); Magnesium 1.6 mg/dL (1.6-2.6); Phosphorous 4.1 mg/dL (2.7-4.5); Total Protein 6.2 g/dL (6.4-8.9)
[2020-10-10 01:40] LABS: Estimated Average Glucose 321 mg/dl; Hemoglobin A1C 12.8 %
[2020-10-10] MEDS: *HR* Heparin 5,000 UNIT/ML VIAL SQ SCH ×3 (04:59→20:50)
[2020-10-10 06:00] LABS: % Iron Saturation 10 % (15-50); Iron 30 mcg/dL (50-170); Transferrin 220 mg/dL (203-362)
[2020-10-10 06:18] LABS: Ferritin 44 ng/mL (10-120)
[2020-10-10 06:22] LABS: Folate 12.9 ng/mL (3.0-16.0)
[2020-10-10] MEDS: Acetaminophen 325 MG TABLET PO PRN ×2 (06:30→18:16)
[2020-10-10] MEDS: Nystatin POWDER 30 GM BOTTLE TP PRN (06:32)
[2020-10-10 07:08] LABS: Sodium, Urine 72.2 mEq/L
[2020-10-10] MEDS: Budesonide/Formoterol 160/4.5 1 PUFF INH IH SCH ×2 (07:26→22:59)
[2020-10-10] MEDS: Insulin LISPRO 300 UNITS/3 ML VIAL SUBQ SCH ×3 (07:50→16:21)
[2020-10-10] MEDS: Renal Vitamin 1 CAP CAPSULE PO SCH (07:50)
[2020-10-10] MEDS: Ringers Solution, Lactated 1,000 ML IVC SCH (07:51)
[2020-10-10] MEDS ORDERED: carvediloL 6.25 MG TABLET PO SCH (08:00)
[2020-10-10] MEDS ORDERED: Aspirin 81 MG TAB.CHEW PO SCH (09:00)
[2020-10-10] MEDS ORDERED: cloNIDine HCL 0.1 MG TABLET PO SCH (09:00)
[2020-10-10] MEDS ORDERED: Nitroglycerin 0.4 MG TAB.SUBL SL PRN (15:19)
[2020-10-10] MEDS: carvediloL 6.25 MG TABLET PO SCH (16:21)
[2020-10-10] MEDS: Gabapentin 300 MG CAPSULE PO SCH (20:49)
[2020-10-10] MEDS: Ranolazine 500 MG TAB.ER.12H PO SCH (20:49)
[2020-10-10] MEDS: cloNIDine HCL 0.1 MG TABLET PO SCH (20:50)
[2020-10-10] MEDS ORDERED: NON-FORMULARY MEDICATION 1 EACH EACH (Insulin Glargine [Lantus] 300 UNIT/3 ML Mls) SQ SCH (21:00)
[2020-10-10] MEDS ORDERED: Insulin DETEMIR 100 UNIT/ML X5UNITS SUBQ SCH (21:00)
[2020-10-10] MEDS ORDERED: Insulin LISPRO 300 UNITS/3 ML VIAL SUBQ SCH (21:00)
[2020-10-11 03:00] LABS: Hematocrit 34.2 % (35.3-44.9); Hemoglobin 10.9 g/dL (11.5-15.4); Mean Corpuscular HGB Conc 31.9 g/dL (31.6-35.5); Mean Corpuscular Hemoglobin 26.8 pg (28.0-33.3); Mean Corpuscular Volume 84.2 fL (83.0-100.0); Mean Platelet Volume 10.9 fL (9.4-12.4); Platelet Count 129 K/mcL (140-400); Red Blood Count 4.06 M/mcL (3.82-4.97); Red Cell Distribution Width 13.3 % (11.5-14.5); White Blood Count 4.9 K/mcL (4.3-11.1)
[2020-10-11 03:14] LABS: Calcium 8.9 mg/dL (8.6-10.3); Magnesium 1.4 mg/dL (1.6-2.6); Potassium 4.2 mEq/L (3.5-5.1)
[2020-10-11] MEDS: *HR* Heparin 5,000 UNIT/ML VIAL SQ SCH ×3 (05:15→20:58)
[2020-10-11] MEDS: Acetaminophen 325 MG TABLET PO PRN (05:28)
[2020-10-11] MEDS: Budesonide/Formoterol 160/4.5 1 PUFF INH IH SCH ×2 (08:06→21:16)
[2020-10-11] MEDS: Insulin LISPRO 300 UNITS/3 ML VIAL SUBQ SCH ×4 (08:40→20:58)
[2020-10-11] MEDS: Renal Vitamin 1 CAP CAPSULE PO SCH (08:41)
[2020-10-11] MEDS: carvediloL 6.25 MG TABLET PO SCH ×2 (08:41→17:27)
[2020-10-11] MEDS: ARIPiprazole 10 MG TABLET PO SCH (08:41)
[2020-10-11] MEDS: Ranolazine 500 MG TAB.ER.12H PO SCH ×2 (08:41→20:57)
[2020-10-11] MEDS: allopurinoL 100 MG TABLET PO SCH (08:41)
[2020-10-11] MEDS: Gabapentin 300 MG CAPSULE PO SCH ×3 (08:41→20:57)
[2020-10-11] MEDS: cloNIDine HCL 0.1 MG TABLET PO SCH ×2 (08:41→20:58)
[2020-10-11] MEDS: Aspirin Enteric Coated 81 MG Tablet PO SCH (08:41)
[2020-10-11] MEDS ORDERED: NON-FORMULARY MEDICATION 1 EACH EACH (Omeprazole [Prilosec] 40 MG Capsule.Dr) PO SCH (09:00)
[2020-10-11] MEDS: levoFLOXacin 250 MG TABLET PO SCH (14:01)
[2020-10-11] MEDS: Carbidopa/Levodopa 25/100 TABLET PO SCH ×2 (17:27→17:28)
[2020-10-11] MEDS: Insulin DETEMIR 100 UNIT/ML X5UNITS SUBQ SCH (20:58)
[2020-10-11] MEDS: FLUoxetine 20 MG CAPSULE PO SCH (20:58)
[2020-10-12 02:26] LABS: Hematocrit 32.5 % (35.3-44.9); Immature Platelets 5.5 % (1.1-6.1); Mean Corpuscular HGB Conc 33.8 g/dL (31.6-35.5); Mean Corpuscular Hemoglobin 27.5 pg (28.0-33.3); Mean Corpuscular Volume 81.3 fL (83.0-100.0); Red Cell Distribution Width 13.4 % (11.5-14.5); White Blood Count 6.6 K/mcL (4.3-11.1)
[2020-10-12 02:47] LABS: Calcium 8.8 mg/dL (8.6-10.3); Magnesium 1.3 mg/dL (1.6-2.6); Potassium 4.5 mEq/L (3.5-5.1)
[2020-10-12] MEDS: *HR* Heparin 5,000 UNIT/ML VIAL SQ SCH ×3 (05:05→21:33)
[2020-10-12] MEDS: Acetaminophen 325 MG TABLET PO PRN (05:05)
[2020-10-12] MEDS: Insulin LISPRO 300 UNITS/3 ML VIAL SUBQ SCH ×4 (07:59→19:37)
[2020-10-12] MEDS: cloNIDine HCL 0.1 MG TABLET PO SCH ×2 (08:36→19:36)
[2020-10-12] MEDS: ARIPiprazole 10 MG TABLET PO SCH (08:36)
[2020-10-12] MEDS: allopurinoL 100 MG TABLET PO SCH (08:37)
[2020-10-12] MEDS: Renal Vitamin 1 CAP CAPSULE PO SCH (08:37)
[2020-10-12] MEDS: Ranolazine 500 MG TAB.ER.12H PO SCH ×2 (08:37→19:36)
[2020-10-12] MEDS: levoFLOXacin 250 MG TABLET PO SCH (08:37)
[2020-10-12] MEDS: carvediloL 6.25 MG TABLET PO SCH ×2 (08:37→17:16)
[2020-10-12] MEDS: Carbidopa/Levodopa 25/100 TABLET PO SCH ×3 (08:37→19:36)
[2020-10-12] MEDS: Gabapentin 300 MG CAPSULE PO SCH ×3 (08:37→19:37)
[2020-10-12] MEDS: Aspirin Enteric Coated 81 MG Tablet PO SCH (08:37)
[2020-10-12] MEDS: Budesonide/Formoterol 160/4.5 1 PUFF INH IH SCH ×2 (10:34→20:19)
[2020-10-12] MEDS: Insulin DETEMIR 100 UNIT/ML X5UNITS SUBQ SCH (19:37)
[2020-10-12] MEDS: FLUoxetine 20 MG CAPSULE PO SCH (19:37)
[2020-10-13 02:00] LABS: Calcium 9.1 mg/dL (8.6-10.3); Magnesium 1.9 mg/dL (1.6-2.6); Potassium 4.5 mEq/L (3.5-5.1)
[2020-10-13] MEDS: *HR* Heparin 5,000 UNIT/ML VIAL SQ SCH ×3 (04:53→22:33)
[2020-10-13] MEDS: Budesonide/Formoterol 160/4.5 1 PUFF INH IH SCH ×2 (07:40→19:58)
[2020-10-13] MEDS: Insulin LISPRO 300 UNITS/3 ML VIAL SUBQ SCH ×5 (07:58→22:31)
[2020-10-13] MEDS: Renal Vitamin 1 CAP CAPSULE PO SCH (07:59)
[2020-10-13] MEDS: ARIPiprazole 10 MG TABLET PO SCH (07:59)
[2020-10-13] MEDS: Gabapentin 300 MG CAPSULE PO SCH ×3 (08:00→19:50)
[2020-10-13] MEDS: Carbidopa/Levodopa 25/100 TABLET PO SCH ×3 (08:00→19:50)
[2020-10-13] MEDS: allopurinoL 100 MG TABLET PO SCH (08:00)
[2020-10-13] MEDS: Aspirin Enteric Coated 81 MG Tablet PO SCH (08:00)
[2020-10-13] MEDS: Ranolazine 500 MG TAB.ER.12H PO SCH ×2 (08:00→19:50)
[2020-10-13] MEDS: levoFLOXacin 250 MG TABLET PO SCH (08:00)
[2020-10-13] MEDS: cloNIDine HCL 0.1 MG TABLET PO SCH ×2 (08:01→19:50)
[2020-10-13] MEDS: carvediloL 6.25 MG TABLET PO SCH ×2 (08:01→15:43)
[2020-10-13] MEDS ORDERED: 0.9 % Sodium Chloride 500 ML IVC SCH (13:30)
[2020-10-13] MEDS: FLUoxetine 20 MG CAPSULE PO SCH (19:50)
[2020-10-13] MEDS: Insulin DETEMIR 100 UNIT/ML X5UNITS SUBQ SCH (22:31)
[2020-10-14] MEDS: Acetaminophen 325 MG TABLET PO PRN (00:06)
[2020-10-14] MEDS: Nystatin POWDER 30 GM BOTTLE TP PRN (00:09)
[2020-10-14] MEDS: *HR* Heparin 5,000 UNIT/ML VIAL SQ SCH ×3 (05:12→21:13)
[2020-10-14] MEDS: *HR* HYDROcodone/Acet 5/325 mg TABLET PO PRN ×2 (05:15→21:16)
[2020-10-14 06:12] LABS: Basophils % 0.4 %; Eosinophils # 0.2 K/mcL (0.0-0.6); Hematocrit 34.6 % (35.3-44.9); Hemoglobin 11.3 g/dL (11.5-15.4); Immature Granulocytes % 0.7 % (0-4); Lymphocytes # 1.5 K/mcL (0.6-4.6); Lymphocytes % 25.8 %; Mean Corpuscular HGB Conc 32.7 g/dL (31.6-35.5); Mean Corpuscular Hemoglobin 27.8 pg (28.0-33.3); Mean Corpuscular Volume 85.2 fL (83.0-100.0); Mean Platelet Volume 10.9 fL (9.4-12.4); Monocytes # 0.4 K/mcL (0.0-1.3); Monocytes % 7.2 %; Neutrophils # 3.5 K/mcL (1.6-8.9); Platelet Count 154 K/mcL (140-400); Red Blood Count 4.06 M/mcL (3.82-4.97); Red Cell Distribution Width 13.4 % (11.5-14.5); Segmented Neutrophils % 61.9 %; White Blood Count 5.7 K/mcL (4.3-11.1)
[2020-10-14 06:44] LABS: Calcium 9.2 mg/dL (8.6-10.3); Potassium 4.5 mEq/L (3.5-5.1)
[2020-10-14] MEDS: Insulin LISPRO 300 UNITS/3 ML VIAL SUBQ SCH ×7 (08:51→21:16)
[2020-10-14] MEDS: levoFLOXacin 250 MG TABLET PO SCH (08:51)
[2020-10-14] MEDS: allopurinoL 100 MG TABLET PO SCH (08:51)
[2020-10-14] MEDS: Ranolazine 500 MG TAB.ER.12H PO SCH ×2 (08:51→21:12)
[2020-10-14] MEDS: cloNIDine HCL 0.1 MG TABLET PO SCH ×2 (08:51→21:12)
[2020-10-14] MEDS: Carbidopa/Levodopa 25/100 TABLET PO SCH ×3 (08:51→21:12)
[2020-10-14] MEDS: Aspirin Enteric Coated 81 MG Tablet PO SCH (08:51)
[2020-10-14] MEDS: Renal Vitamin 1 CAP CAPSULE PO SCH (08:52)
[2020-10-14] MEDS: carvediloL 6.25 MG TABLET PO SCH ×2 (08:52→16:57)
[2020-10-14] MEDS: ARIPiprazole 10 MG TABLET PO SCH (08:52)
[2020-10-14] MEDS: Gabapentin 300 MG CAPSULE PO SCH ×3 (08:52→21:13)
[2020-10-14] MEDS: Budesonide/Formoterol 160/4.5 1 PUFF INH IH SCH ×2 (09:38→19:47)
[2020-10-14] MEDS: FLUoxetine 20 MG CAPSULE PO SCH (21:12)
[2020-10-14] MEDS: Insulin DETEMIR 100 UNIT/ML X5UNITS SUBQ SCH (21:16)
[2020-10-15] MEDS: *HR* Heparin 5,000 UNIT/ML VIAL SQ SCH ×3 (05:35→20:52)
[2020-10-15] MEDS: *HR* HYDROcodone/Acet 5/325 mg TABLET PO PRN ×2 (05:37→20:51)
[2020-10-15] MEDS: Budesonide/Formoterol 160/4.5 1 PUFF INH IH SCH ×2 (07:22→19:19)
[2020-10-15] MEDS: Insulin LISPRO 300 UNITS/3 ML VIAL SUBQ SCH ×7 (08:05→20:53)
[2020-10-15] MEDS: carvediloL 6.25 MG TABLET PO SCH ×2 (08:09→16:54)
[2020-10-15] MEDS: ARIPiprazole 10 MG TABLET PO SCH (08:10)
[2020-10-15] MEDS: levoFLOXacin 250 MG TABLET PO SCH (08:10)
[2020-10-15] MEDS: cloNIDine HCL 0.1 MG TABLET PO SCH ×2 (08:10→20:52)
[2020-10-15] MEDS: Aspirin Enteric Coated 81 MG Tablet PO SCH (08:10)
[2020-10-15] MEDS: allopurinoL 100 MG TABLET PO SCH (08:11)
[2020-10-15] MEDS: Gabapentin 300 MG CAPSULE PO SCH ×3 (08:11→20:52)
[2020-10-15] MEDS: Renal Vitamin 1 CAP CAPSULE PO SCH (08:11)
[2020-10-15] MEDS: Ranolazine 500 MG TAB.ER.12H PO SCH ×2 (08:11→20:52)
[2020-10-15] MEDS: Carbidopa/Levodopa 25/100 TABLET PO SCH ×3 (08:11→20:52)
[2020-10-15] MEDS: FLUoxetine 20 MG CAPSULE PO SCH (20:52)
[2020-10-15] MEDS: Insulin DETEMIR 100 UNIT/ML X5UNITS SUBQ SCH (20:53)
[2020-10-16] MEDS: *HR* Heparin 5,000 UNIT/ML VIAL SQ SCH ×3 (05:37→22:15)
[2020-10-16] MEDS: Budesonide/Formoterol 160/4.5 1 PUFF INH IH SCH ×2 (07:23→19:47)
[2020-10-16] MEDS: Insulin LISPRO 300 UNITS/3 ML VIAL SUBQ SCH ×7 (07:41→20:05)
[2020-10-16] MEDS: ARIPiprazole 10 MG TABLET PO SCH (07:52)
[2020-10-16] MEDS: Renal Vitamin 1 CAP CAPSULE PO SCH (07:52)
[2020-10-16] MEDS: Ranolazine 500 MG TAB.ER.12H PO SCH ×2 (07:52→19:56)
[2020-10-16] MEDS: Aspirin Enteric Coated 81 MG Tablet PO SCH (07:52)
[2020-10-16] MEDS: carvediloL 6.25 MG TABLET PO SCH ×2 (07:53→16:40)
[2020-10-16] MEDS: Carbidopa/Levodopa 25/100 TABLET PO SCH ×3 (07:53→19:55)
[2020-10-16] MEDS: Gabapentin 300 MG CAPSULE PO SCH ×3 (07:53→19:55)
[2020-10-16] MEDS: cloNIDine HCL 0.1 MG TABLET PO SCH ×2 (07:53→19:55)
[2020-10-16] MEDS: allopurinoL 100 MG TABLET PO SCH (07:57)
[2020-10-16] MEDS: Insulin DETEMIR 100 UNIT/ML X5UNITS SUBQ SCH (19:55)
[2020-10-16] MEDS: FLUoxetine 20 MG CAPSULE PO SCH (19:56)
[2020-10-16] MEDS: *HR* HYDROcodone/Acet 5/325 mg TABLET PO PRN (20:00)
[2020-10-17 01:53] LABS: Calcium 8.4 mg/dL (8.6-10.3)
[2020-10-17] MEDS: *HR* Heparin 5,000 UNIT/ML VIAL SQ SCH ×3 (05:52→22:00)
[2020-10-17] MEDS: *HR* HYDROcodone/Acet 5/325 mg TABLET PO PRN (05:52)
[2020-10-17] MEDS ORDERED: 0.9 % Sodium Chloride 1,000 ML IVC SCH (07:30)
[2020-10-17] MEDS: Budesonide/Formoterol 160/4.5 1 PUFF INH IH SCH ×2 (07:58→19:55)
[2020-10-17] MEDS: Insulin LISPRO 300 UNITS/3 ML VIAL SUBQ SCH ×7 (08:21→22:14)
[2020-10-17] MEDS: Renal Vitamin 1 CAP CAPSULE PO SCH (08:45)
[2020-10-17] MEDS: ARIPiprazole 10 MG TABLET PO SCH (08:45)
[2020-10-17] MEDS: cloNIDine HCL 0.1 MG TABLET PO SCH ×2 (08:45→22:00)
[2020-10-17] MEDS: Gabapentin 300 MG CAPSULE PO SCH ×3 (08:45→22:00)
[2020-10-17] MEDS: Ranolazine 500 MG TAB.ER.12H PO SCH ×2 (08:45→22:00)
[2020-10-17] MEDS: Aspirin Enteric Coated 81 MG Tablet PO SCH (08:45)
[2020-10-17] MEDS: carvediloL 6.25 MG TABLET PO SCH ×2 (08:45→16:59)
[2020-10-17] MEDS: Carbidopa/Levodopa 25/100 TABLET PO SCH ×3 (08:45→22:00)
[2020-10-17] MEDS: allopurinoL 100 MG TABLET PO SCH (08:46)
[2020-10-17] MEDS: FLUoxetine 20 MG CAPSULE PO SCH (22:00)
[2020-10-17] MEDS: Sennosides/Docusate Sodium TABLET PO SCH (22:00)
[2020-10-17] MEDS: Insulin DETEMIR 100 UNIT/ML X5UNITS SUBQ SCH (22:15)
[2020-10-18 03:23] LABS: BUN/Creatinine Ratio 27 (6-26); Blood Urea Nitrogen 30 mg/dL (8-23); Calcium 9.2 mg/dL (8.6-10.3); Carbon Dioxide 24 mEq/L (23-29); Chloride 103 mEq/L (98-107); Glucose 195 mg/dL (70-105); Osmolality,Calculated 288 (280-300); Potassium 4.8 mEq/L (3.5-5.1); Sodium 133 mEq/L (136-145); eGFR For African Americans > 60 (> 60); eGFR For Non-African Americans 50 (> 60)
[2020-10-18] MEDS: *HR* Heparin 5,000 UNIT/ML VIAL SQ SCH ×2 (05:16→14:51)
[2020-10-18] MEDS: Budesonide/Formoterol 160/4.5 1 PUFF INH IH SCH (07:57)
[2020-10-18] MEDS: Insulin LISPRO 300 UNITS/3 ML VIAL SUBQ SCH ×4 (08:02→11:35)
[2020-10-18] MEDS: allopurinoL 100 MG TABLET PO SCH (08:05)
[2020-10-18] MEDS: Aspirin Enteric Coated 81 MG Tablet PO SCH (08:05)
[2020-10-18] MEDS: cloNIDine HCL 0.1 MG TABLET PO SCH (08:05)
[2020-10-18] MEDS: Carbidopa/Levodopa 25/100 TABLET PO SCH ×2 (08:05→14:52)
[2020-10-18] MEDS: carvediloL 6.25 MG TABLET PO SCH (08:06)
[2020-10-18] MEDS: Gabapentin 300 MG CAPSULE PO SCH ×2 (08:07→14:52)
[2020-10-18] MEDS: ARIPiprazole 10 MG TABLET PO SCH (08:07)
[2020-10-18] MEDS: Renal Vitamin 1 CAP CAPSULE PO SCH (08:12)
[2020-10-18] MEDS: Ranolazine 500 MG TAB.ER.12H PO SCH (08:13)
[2020-10-18] MEDS: Sennosides/Docusate Sodium TABLET PO SCH (08:13)
[2020-10-18 10:22] VITALS: BP 156/76
[2020-10-18 16:09] LABS: Adenovirus Not Detected (Not Detect); Coronavirus 229E Not Detected (Not Detect); Coronavirus HKU1 Not Detected (Not Detect); Coronavirus NL63 Not Detected (Not Detect); Coronavirus OC43 Not Detected (Not Detect); SARS-CoV-2 Not Detected (Not Detect)
[2020-10-18 16:10] LABS: Bordetella Pertussis Not Detected (Not Detect); Chlamydophila pneumoniae Not Detected (Not Detect); Human Metapneumovirus Not Detected (Not Detect); Human Rhinovirus/Enterovirus Not Detected (Not Detect); Influenza A Subtype 2009 H1 Not Detected (Not Detect); Influenza B Not Detected (Not Detect); Mycoplasma pneumoniae Not Detected (Not Detect); Parainfluenza Virus 1 Not Detected (Not Detect); Parainfluenza Virus 2 Not Detected (Not Detect); Parainfluenza Virus 3 Not Detected (Not Detect); Parainfluenza Virus 4 Not Detected (Not Detect); Respiratory Syncytial Virus Not Detected (Not Detect)
== END 2020-10-18 17:06 ==
LOC: 2ANU → SUATTDRO 20:20
PROVIDERS: ADMIT General Practice; ATTEND Internal Medicine

== ENCOUNTER 2021-02-20 20:39 | Inpatient (IN) ==
[2021-02-20] MEDS ORDERED: 0.9 % Sodium Chloride 1,000 ML IVC ONE (21:29)
[2021-02-20 22:32] LABS: Basophils % 0.5 %; Eosinophils # 0.2 K/mcL (0.0-0.6); Eosinophils % 2.8 %; Hematocrit 32.1 % (35.3-44.9); Hemoglobin 10.6 g/dL (11.5-15.4); Immature Granulocytes % 0.3 % (0-4); Lymphocytes # 1.8 K/mcL (0.6-4.6); Lymphocytes % 23.5 %; Mean Corpuscular Volume 87.7 fL (83.0-100.0); Mean Platelet Volume 10.3 fL (9.4-12.4); Monocytes # 0.6 K/mcL (0.0-1.3); Monocytes % 7.4 %; Neutrophils # 4.9 K/mcL (1.6-8.9); Platelet Count 184 K/mcL (140-400); Red Blood Count 3.66 M/mcL (3.82-4.97); Red Cell Distribution Width 13.6 % (11.5-14.5); Segmented Neutrophils % 65.5 %; White Blood Count 7.5 K/mcL (4.3-11.1)
[2021-02-20 23:07] LABS: Bilirubin,Urine Negative (Negative); Blood,Urine Negative (Negative); Clarity,Urine Clear (Clear); Color,Urine Light-Yellow (Yellow); Glucose,Urine (UA) 50 mg/dL (Normal); Ketones,Urine Negative (Negative); Leukocyte Esterase,Urine Negative (Negative); Nitrite,Urine Negative (Negative); PH,Urine 6.5 pH Units (5.0-8.0); Protein,Urine 100 mg/dL (Neg-Trace); RBC,Urine 0-3 per hpf (0-3); Specific Gravity,Urine 1.011 (1.010-1.025); Squamous Epithelial Cell,Urine Few per hpf (None-Few); Urobilinogen,Urine Normal (Normal)
[2021-02-21 00:39] LABS: Albumin 3.7 g/dL (3.5-5.7); Bilirubin,Direct 0.1 mg/dL (0.0-0.2); Bilirubin,Indirect 0.3 mg/dL (0.0-1.0); Bilirubin,Total 0.4 mg/dL (0.3-1.0); Calcium 9.1 mg/dL (8.6-10.3); Globulin 3.6 g/dL (2.4-3.5); Potassium 5.2 mEq/L (3.5-5.1); Total Protein 7.3 g/dL (6.4-8.9)
[2021-02-21] MEDS ORDERED: Acetaminophen 325 MG TABLET PO PRN (02:45)
[2021-02-21] MEDS ORDERED: Naloxone 0.4 MG/ML INJ IVP PRN (02:45)
[2021-02-21] MEDS ORDERED: Ondansetron 4 MG/2 ML VIAL IVP PRN (02:45)
[2021-02-21] MEDS: 0.9 % Sodium Chloride 1,000 ML IVC SCH ×3 (02:56→18:01)
[2021-02-21] MEDS ORDERED: D5% in Water 1,000 ML IVC PRN (04:40)
[2021-02-21] MEDS ORDERED: *HR* Dextrose 50 % in Water (Vial) 50 ML VIAL IVP PRN (04:40)
[2021-02-21] MEDS ORDERED: Dextrose Gel 15 GM/37.5 ML TUBE PO PRN ×2 (04:40)
[2021-02-21] MEDS: *HR* Heparin 5,000 UNIT/ML VIAL SQ SCH ×3 (05:49→20:28)
[2021-02-21 07:03] LABS: Calcium 8.9 mg/dL (8.6-10.3); Potassium 5.2 mEq/L (3.5-5.1)
[2021-02-21] MEDS: Insulin LISPRO 300 UNITS/3 ML VIAL SUBQ SCH ×4 (09:05→20:20)
[2021-02-21] MEDS ORDERED: Albuterol 2.5 MG/3 ML NEBULIZER IH PRN (15:40)
[2021-02-21] MEDS: carvediloL 6.25 MG TABLET PO SCH (16:49)
[2021-02-21] MEDS: Budesonide/Formoterol 160/4.5 1 PUFF INH IH SCH (20:05)
[2021-02-21] MEDS: Carbidopa/Levodopa 25/100 TABLET PO SCH (20:26)
[2021-02-21] MEDS: Ranolazine 500 MG TAB.ER.12H PO SCH (20:26)
[2021-02-21] MEDS: cloNIDine HCL 0.1 MG TABLET PO SCH (20:27)
[2021-02-21] MEDS: FLUoxetine 20 MG CAPSULE PO SCH (20:27)
[2021-02-21 21:01] LABS: Protein/Creatinine Ratio,Urine 2.21 mg/mg (0.00-0.20); Sodium, Urine 89.9 mEq/L
[2021-02-22] MEDS: 0.9 % Sodium Chloride 1,000 ML IVC SCH ×3 (02:24→11:31)
[2021-02-22] MEDS: *HR* Heparin 5,000 UNIT/ML VIAL SQ SCH ×3 (05:51→20:57)
[2021-02-22 06:18] LABS: Hematocrit 28.6 % (35.3-44.9); Hemoglobin 9.3 g/dL (11.5-15.4); Mean Corpuscular HGB Conc 32.5 g/dL (31.6-35.5); Mean Corpuscular Hemoglobin 28.7 pg (28.0-33.3); Mean Corpuscular Volume 88.3 fL (83.0-100.0); Mean Platelet Volume 10.3 fL (9.4-12.4); Platelet Count 147 K/mcL (140-400); Red Blood Count 3.24 M/mcL (3.82-4.97); Red Cell Distribution Width 13.7 % (11.5-14.5); White Blood Count 5.7 K/mcL (4.3-11.1)
[2021-02-22 06:39] LABS: Calcium 8.4 mg/dL (8.6-10.3); Potassium 4.5 mEq/L (3.5-5.1)
[2021-02-22] MEDS: Budesonide/Formoterol 160/4.5 1 PUFF INH IH SCH ×2 (07:28→19:44)
[2021-02-22] MEDS: Insulin LISPRO 300 UNITS/3 ML VIAL SUBQ SCH ×4 (07:57→21:17)
[2021-02-22] MEDS ORDERED: atenoloL 50 MG TABLET PO SCH (09:00)
[2021-02-22] MEDS: carvediloL 6.25 MG TABLET PO SCH ×2 (09:27→16:52)
[2021-02-22] MEDS: cloNIDine HCL 0.1 MG TABLET PO SCH ×2 (09:27→20:57)
[2021-02-22] MEDS: ARIPiprazole 10 MG TABLET PO SCH (09:27)
[2021-02-22] MEDS: allopurinoL 100 MG TABLET PO SCH (09:27)
[2021-02-22] MEDS: Ranolazine 500 MG TAB.ER.12H PO SCH ×2 (09:27→20:56)
[2021-02-22] MEDS: Carbidopa/Levodopa 25/100 TABLET PO SCH ×3 (09:27→21:17)
[2021-02-22] MEDS: Aspirin Enteric Coated 81 MG Tablet PO SCH (09:27)
[2021-02-22] MEDS ORDERED: Albuterol 2.5 MG/3 ML NEBULIZER IH PRN (10:00)
[2021-02-22] MEDS: FLUoxetine 20 MG CAPSULE PO SCH (20:57)
[2021-02-22] MEDS: Terconazole Vag SUPP 80 MG SUPP.VAG VG SCH (21:20)
[2021-02-23 01:34] LABS: Hematocrit 30.1 % (35.3-44.9); Hemoglobin 9.7 g/dL (11.5-15.4); Mean Corpuscular HGB Conc 32.2 g/dL (31.6-35.5); Mean Corpuscular Hemoglobin 28.2 pg (28.0-33.3); Mean Corpuscular Volume 87.5 fL (83.0-100.0); Mean Platelet Volume 9.8 fL (9.4-12.4); Platelet Count 154 K/mcL (140-400); Red Blood Count 3.44 M/mcL (3.82-4.97); Red Cell Distribution Width 13.5 % (11.5-14.5); White Blood Count 6.8 K/mcL (4.3-11.1)
[2021-02-23 01:59] LABS: Calcium 8.8 mg/dL (8.6-10.3); Potassium 4.5 mEq/L (3.5-5.1)
[2021-02-23] MEDS: *HR* Heparin 5,000 UNIT/ML VIAL SQ SCH ×3 (06:57→20:43)
[2021-02-23] MEDS: Budesonide/Formoterol 160/4.5 1 PUFF INH IH SCH ×2 (07:19→19:43)
[2021-02-23] MEDS: Aspirin Enteric Coated 81 MG Tablet PO SCH (09:02)
[2021-02-23] MEDS: ARIPiprazole 10 MG TABLET PO SCH (09:02)
[2021-02-23] MEDS: Ranolazine 500 MG TAB.ER.12H PO SCH ×2 (09:03→20:05)
[2021-02-23] MEDS: Carbidopa/Levodopa 25/100 TABLET PO SCH ×3 (09:03→20:05)
[2021-02-23] MEDS: carvediloL 6.25 MG TABLET PO SCH ×2 (09:03→17:30)
[2021-02-23] MEDS: allopurinoL 100 MG TABLET PO SCH (09:03)
[2021-02-23] MEDS: Insulin LISPRO 300 UNITS/3 ML VIAL SUBQ SCH ×4 (09:04→20:43)
[2021-02-23] MEDS: cloNIDine HCL 0.1 MG TABLET PO SCH ×2 (09:07→20:06)
[2021-02-23 16:26] LABS: Adenovirus F 40/41 PCR Not detected (Not detect); Astrovirus PCR Not detected (Not detect); C.difficile Toxin A/B Gene PCR Not detected (Not detect); Campylobacter by PCR Not detected (Not detect); Cryptosporidium by PCR Not detected (Not detect); Cyclospora cayetanensis PCR Not detected (Not detect); E. coli O157 by PCR Not detected (Not detect); Entamoeba histolytica PCR Not detected (Not detect); Enteroaggregative E.coli(EAEC) Not detected (Not detect); Enteropathogenic E.coli(EPEC) Not detected (Not detect); Enterotoxigenic E.coli (ETEC) Not detected (Not detect); Giardia lamblia PCR Not detected (Not detect); Norovirus GI/GII PCR Not detected (Not detect); Plesiomonas shigelloides PCR Not detected (Not detect); Rotavirus A PCR Not detected (Not detect); Salmonella PCR Not detected (Not detect); Sapovirus PCR Not detected (Not detect); Shig/EnteroinvasiveE coli EIEC Not detected (Not detect); Shigalike tox-prod E coli STEC Not detected (Not detect); Vibrio PCR Not detected (Not detect); Vibrio cholerae PCR Not detected (Not detect); Yersinia enterocolitica PCR Not detected (Not detect)
[2021-02-23] MEDS: FLUoxetine 20 MG CAPSULE PO SCH (20:05)
[2021-02-23] MEDS: Terconazole Vag SUPP 80 MG SUPP.VAG VG SCH (22:47)
[2021-02-24] MEDS: *HR* Heparin 5,000 UNIT/ML VIAL SQ SCH ×3 (05:10→22:29)
[2021-02-24] MEDS: carvediloL 6.25 MG TABLET PO SCH ×2 (06:41→16:47)
[2021-02-24] MEDS: cloNIDine HCL 0.1 MG TABLET PO SCH ×2 (06:42→22:29)
[2021-02-24 07:05] LABS: Hematocrit 30.7 % (35.3-44.9); Mean Corpuscular HGB Conc 32.6 g/dL (31.6-35.5); Mean Corpuscular Hemoglobin 28.4 pg (28.0-33.3); Mean Corpuscular Volume 87.2 fL (83.0-100.0); Mean Platelet Volume 9.9 fL (9.4-12.4); Platelet Count 146 K/mcL (140-400); Red Blood Count 3.52 M/mcL (3.82-4.97); Red Cell Distribution Width 13.7 % (11.5-14.5); White Blood Count 8.9 K/mcL (4.3-11.1)
[2021-02-24 07:20] LABS: Potassium 4.4 mEq/L (3.5-5.1)
[2021-02-24] MEDS: Budesonide/Formoterol 160/4.5 1 PUFF INH IH SCH ×2 (07:52→20:02)
[2021-02-24] MEDS: Insulin LISPRO 300 UNITS/3 ML VIAL SUBQ SCH ×4 (08:03→22:27)
[2021-02-24] MEDS: allopurinoL 100 MG TABLET PO SCH (08:04)
[2021-02-24] MEDS: Carbidopa/Levodopa 25/100 TABLET PO SCH ×3 (08:04→22:29)
[2021-02-24] MEDS: Ranolazine 500 MG TAB.ER.12H PO SCH ×2 (08:04→22:29)
[2021-02-24] MEDS: ARIPiprazole 10 MG TABLET PO SCH (08:04)
[2021-02-24] MEDS: Aspirin Enteric Coated 81 MG Tablet PO SCH (08:04)
[2021-02-24] MEDS: Gabapentin 300 MG CAPSULE PO SCH (18:47)
[2021-02-24] MEDS: FLUoxetine 20 MG CAPSULE PO SCH (22:29)
[2021-02-25] MEDS: Gabapentin 300 MG CAPSULE PO SCH ×3 (00:11→15:14)
[2021-02-25] MEDS: *HR* Heparin 5,000 UNIT/ML VIAL SQ SCH ×2 (06:01→15:14)
[2021-02-25] MEDS: Budesonide/Formoterol 160/4.5 1 PUFF INH IH SCH (08:00)
[2021-02-25 08:01] VITALS: O2SAT 98
[2021-02-25 08:04] LABS: Hematocrit 30.8 % (35.3-44.9); Hemoglobin 10.5 g/dL (11.5-15.4); Mean Corpuscular HGB Conc 34.1 g/dL (31.6-35.5); Mean Corpuscular Hemoglobin 29.7 pg (28.0-33.3); Mean Corpuscular Volume 87.3 fL (83.0-100.0); Mean Platelet Volume 9.4 fL (9.4-12.4); Platelet Count 159 K/mcL (140-400); Red Blood Count 3.53 M/mcL (3.82-4.97); Red Cell Distribution Width 13.7 % (11.5-14.5); White Blood Count 8.6 K/mcL (4.3-11.1)
[2021-02-25] MEDS: Aspirin Enteric Coated 81 MG Tablet PO SCH (08:15)
[2021-02-25] MEDS: allopurinoL 100 MG TABLET PO SCH (08:16)
[2021-02-25] MEDS: Carbidopa/Levodopa 25/100 TABLET PO SCH ×2 (08:16→15:14)
[2021-02-25] MEDS: ARIPiprazole 10 MG TABLET PO SCH (08:16)
[2021-02-25] MEDS: carvediloL 6.25 MG TABLET PO SCH ×2 (08:16→17:22)
[2021-02-25] MEDS: cloNIDine HCL 0.1 MG TABLET PO SCH (08:16)
[2021-02-25] MEDS: Ranolazine 500 MG TAB.ER.12H PO SCH (08:16)
[2021-02-25] MEDS: Insulin LISPRO 300 UNITS/3 ML VIAL SUBQ SCH ×3 (08:18→17:22)
[2021-02-25 08:25] LABS: Calcium 8.8 mg/dL (8.6-10.3)
[2021-02-25 11:05] VITALS: BP 147/71; PULSE 69; TEMP 97.7
== END 2021-02-25 17:30 | DRG 469 ==
LOC: 2ANU 20:39 → EMEROOARM 20:39 → SUATTDRO 02-21 01:04 → 2ANU 02-21 01:31
PROVIDERS: ADMIT Internal Medicine; ATTEND Family Medicine

== ENCOUNTER 2021-09-03 03:20 | Inpatient (IN) ==
[2021-09-03 03:51] LABS: Basophils % 0.1 %; Hematocrit 23.9 % (35.3-44.9); Hemoglobin 7.8 g/dL (11.5-15.4); Immature Granulocytes % 0.5 % (0-4); Lymphocytes # 0.6 K/mcL (0.6-4.6); Lymphocytes % 6.9 %; Mean Corpuscular HGB Conc 32.6 g/dL (31.6-35.5); Mean Corpuscular Hemoglobin 28.5 pg (28.0-33.3); Mean Corpuscular Volume 87.2 fL (83.0-100.0); Mean Platelet Volume 10.6 fL (9.4-12.4); Monocytes # 0.5 K/mcL (0.0-1.3); Monocytes % 6.7 %; Platelet Count 182 K/mcL (140-400); Red Blood Count 2.74 M/mcL (3.82-4.97); Red Cell Distribution Width 15.1 % (11.5-14.5); Segmented Neutrophils % 85.8 %; White Blood Count 8.1 K/mcL (4.3-11.1)
[2021-09-03 04:11] LABS: BUN/Creatinine Ratio 24 (6-26); Blood Urea Nitrogen 47 mg/dL (8-23); Calcium 8.8 mg/dL (8.6-10.3); Carbon Dioxide 24 mEq/L (23-29); Chloride 99 mEq/L (98-107); Glucose 304 mg/dL (70-105); Osmolality,Calculated 296 (280-300); Potassium 5.1 mEq/L (3.5-5.1); Sodium 131 mEq/L (136-145); Troponin I < 0.03 ng/mL (< 0.04); eGFR For African Americans 32 (> 60); eGFR For Non-African Americans 26 (> 60)
[2021-09-03] MEDS ORDERED: Insulin LISPRO 300 UNITS/3 ML VIAL SUBQ ONE (04:31)
[2021-09-03] MEDS ORDERED: Bumetanide 1 MG/4 ML VIAL IVP ONE (05:03)
[2021-09-03] MEDS ORDERED: Ondansetron ODT 4 MG TAB.RAPDIS SL PRN (05:09)
[2021-09-03] MEDS ORDERED: Naloxone 0.4 MG/ML INJ IVP PRN (05:09)
[2021-09-03] MEDS ORDERED: *HR* Dextrose 50 % in Water (Syg) 50 ML SYRINGE IVP PRN (05:15)
[2021-09-03] MEDS ORDERED: D5% in Water 1,000 ML IVC PRN (05:15)
[2021-09-03] MEDS ORDERED: Dextrose Gel 15 GM/37.5 ML TUBE PO PRN ×2 (05:15)
[2021-09-03] MEDS ORDERED: Perflutren Lipid Microsphere 1.3 ML in 0.9 % Sodium Chloride 8.7 ML IVP PRN (05:16)
[2021-09-03 05:38] LABS: VBG HCO3 24 mEq/L (21-27); VBG PCO2 45 mmHg (41-51); VBG PH 7.34 pH Units (7.32-7.42); VBG PO2 82 mmHg (25-50)
[2021-09-03] MEDS ORDERED: Ipratropium/Albuterol Neb 3 ML IH PRN (05:44)
[2021-09-03 06:05] LABS: Influenza A PCR Negative (Negative); Influenza B PCR Negative (Negative); Resp. Syncytial Virus PCR Negative (Negative)
[2021-09-03 06:06] LABS: SARS-CoV-2 by PCR (In House) Negative (Negative)
[2021-09-03] MEDS: *HR* HYDROcodone/Acet 5/325 mg TABLET PO PRN ×2 (09:26→16:15)
[2021-09-03] MEDS: allopurinoL 100 MG TABLET PO SCH (09:26)
[2021-09-03] MEDS: Aspirin 81 MG TAB.CHEW PO SCH (09:27)
[2021-09-03] MEDS: Insulin LISPRO 300 UNITS/3 ML VIAL SUBQ SCH ×4 (10:58→20:48)
[2021-09-03] MEDS ORDERED: *HR* Heparin 5,000 UNIT/ML VIAL SQ SCH (18:00)
[2021-09-03] MEDS: Apixaban 5 MG TABLET PO SCH (20:47)
[2021-09-03] MEDS: *HR* OxyCODONE Immed Rel 5 MG TABLET PO PRN (21:41)
[2021-09-03] MEDS ORDERED: *HR* Labetalol 20 MG/4 ML SYRINGE IVP ONE (23:27)
[2021-09-04] MEDS: Melatonin 3 MG TABLET PO PRN ×2 (00:22→20:11)
[2021-09-04] MEDS: Acetaminophen 325 MG TABLET PO PRN ×2 (03:27→17:45)
[2021-09-04] MEDS: *HR* OxyCODONE Immed Rel 5 MG TABLET PO PRN (04:59)
[2021-09-04 06:12] LABS: Hematocrit 23.5 % (35.3-44.9); Hemoglobin 7.5 g/dL (11.5-15.4); Mean Corpuscular HGB Conc 31.9 g/dL (31.6-35.5); Mean Corpuscular Hemoglobin 28.4 pg (28.0-33.3); Mean Platelet Volume 10.1 fL (9.4-12.4); Platelet Count 177 K/mcL (140-400); Red Blood Count 2.64 M/mcL (3.82-4.97); Red Cell Distribution Width 15.5 % (11.5-14.5); White Blood Count 7.8 K/mcL (4.3-11.1)
[2021-09-04 06:33] LABS: Calcium 8.8 mg/dL (8.6-10.3); Chol/HDL Ratio 2.1 (0-4.9); Magnesium 1.7 mg/dL (1.6-2.6); Potassium 5.1 mEq/L (3.5-5.1)
[2021-09-04] MEDS ORDERED: Albuterol 2.5 MG/3 ML NEBULIZER IH PRN (07:29)
[2021-09-04] MEDS ORDERED: Nitroglycerin 0.4 MG TAB.SUBL SL PRN (07:29)
[2021-09-04] MEDS: Furosemide 40 MG/4 ML VIAL IVP SCH ×2 (08:16→17:11)
[2021-09-04] MEDS: *HR* HYDROcodone/Acet 5/325 mg TABLET PO PRN ×2 (08:16→20:12)
[2021-09-04] MEDS: Apixaban 5 MG TABLET PO SCH (08:17)
[2021-09-04] MEDS: FLUoxetine 20 MG CAPSULE PO SCH (08:17)
[2021-09-04] MEDS: Insulin LISPRO 300 UNITS/3 ML VIAL SUBQ SCH ×4 (08:17→20:15)
[2021-09-04] MEDS: cloNIDine HCL 0.1 MG TABLET PO SCH ×2 (08:17→20:12)
[2021-09-04] MEDS: Carbidopa/Levodopa 25/100 TABLET PO SCH ×4 (08:17→20:12)
[2021-09-04] MEDS: Aspirin 81 MG TAB.CHEW PO SCH (08:18)
[2021-09-04] MEDS: allopurinoL 100 MG TABLET PO SCH (08:18)
[2021-09-04] MEDS: Ranolazine 500 MG TAB.ER.12H PO SCH ×2 (08:18→20:12)
[2021-09-04] MEDS: ARIPiprazole 10 MG TABLET PO SCH (08:18)
[2021-09-04] MEDS: Budesonide/Formoterol 160/4.5 1 PUFF INH IH SCH ×2 (08:27→20:00)
[2021-09-04] MEDS ORDERED: Oxymetazoline Nasal SPRAY BOTTLE 15ML NS PRN (15:00)
[2021-09-04 17:46] LABS: Hemoglobin 7.3 g/dL (11.5-15.4)
[2021-09-04] MEDS: Gabapentin 300 MG CAPSULE PO SCH (20:12)
[2021-09-04] MEDS: traZODone 50 MG TABLET PO SCH (20:12)
[2021-09-04] MEDS: *HR* LORazepam 1 MG TABLET PO PRN (20:12)
[2021-09-04] MEDS: Insulin DETEMIR 100 UNIT/ML X5UNITS SUBQ SCH (21:53)
[2021-09-05] MEDS: Acetaminophen 325 MG TABLET PO PRN (01:53)
[2021-09-05] MEDS: *HR* HYDROcodone/Acet 5/325 mg TABLET PO PRN ×2 (02:36→17:21)
[2021-09-05] MEDS: Furosemide 40 MG/4 ML VIAL IVP SCH ×2 (07:48→17:16)
[2021-09-05] MEDS: Insulin LISPRO 300 UNITS/3 ML VIAL SUBQ SCH ×4 (08:01→21:37)
[2021-09-05] MEDS: Budesonide/Formoterol 160/4.5 1 PUFF INH IH SCH ×2 (08:08→20:27)
[2021-09-05] MEDS: Ranolazine 500 MG TAB.ER.12H PO SCH ×2 (08:58→21:42)
[2021-09-05] MEDS: cloNIDine HCL 0.1 MG TABLET PO SCH ×2 (08:58→21:42)
[2021-09-05] MEDS: allopurinoL 100 MG TABLET PO SCH (08:58)
[2021-09-05] MEDS: FLUoxetine 20 MG CAPSULE PO SCH (08:58)
[2021-09-05] MEDS: ARIPiprazole 10 MG TABLET PO SCH (08:58)
[2021-09-05] MEDS: Carbidopa/Levodopa 25/100 TABLET PO SCH ×4 (08:58→21:42)
[2021-09-05 10:02] LABS: Basophils % 0.3 %; Eosinophils # 0.3 K/mcL (0.0-0.6); Eosinophils % 3.8 %; Hematocrit 24.4 % (35.3-44.9); Hemoglobin 7.6 g/dL (11.5-15.4); Immature Granulocytes % 0.4 % (0-4); Lymphocytes # 1.2 K/mcL (0.6-4.6); Lymphocytes % 16.9 %; Mean Corpuscular HGB Conc 31.1 g/dL (31.6-35.5); Mean Platelet Volume 10.5 fL (9.4-12.4); Monocytes # 0.7 K/mcL (0.0-1.3); Monocytes % 9.5 %; Neutrophils # 4.7 K/mcL (1.6-8.9); Platelet Count 181 K/mcL (140-400); Red Blood Count 2.71 M/mcL (3.82-4.97); Red Cell Distribution Width 15.6 % (11.5-14.5); Segmented Neutrophils % 69.1 %; White Blood Count 6.8 K/mcL (4.3-11.1)
[2021-09-05 10:20] LABS: Calcium 8.8 mg/dL (8.6-10.3); Potassium 4.7 mEq/L (3.5-5.1)
[2021-09-05] MEDS ORDERED: cloNIDine HCL 0.1 MG TABLET PO ONE (11:42)
[2021-09-05] MEDS: Gabapentin 300 MG CAPSULE PO SCH (21:41)
[2021-09-05] MEDS: *HR* LORazepam 1 MG TABLET PO PRN (21:42)
[2021-09-05] MEDS: traZODone 50 MG TABLET PO SCH (21:42)
[2021-09-05] MEDS: Insulin DETEMIR 100 UNIT/ML X5UNITS SUBQ SCH (21:43)
[2021-09-06] MEDS: Acetaminophen 325 MG TABLET PO PRN (00:58)
[2021-09-06 02:46] LABS: Basophils % 0.2 %; Eosinophils # 0.1 K/mcL (0.0-0.6); Eosinophils % 2.4 %; Hematocrit 22.6 % (35.3-44.9); Immature Granulocytes % 0.5 % (0-4); Lymphocytes # 0.9 K/mcL (0.6-4.6); Lymphocytes % 14.8 %; Mean Corpuscular Hemoglobin 27.8 pg (28.0-33.3); Mean Corpuscular Volume 89.7 fL (83.0-100.0); Mean Platelet Volume 10.1 fL (9.4-12.4); Monocytes # 0.5 K/mcL (0.0-1.3); Monocytes % 8.9 %; Neutrophils # 4.3 K/mcL (1.6-8.9); Platelet Count 148 K/mcL (140-400); Red Blood Count 2.52 M/mcL (3.82-4.97); Red Cell Distribution Width 15.5 % (11.5-14.5); Segmented Neutrophils % 73.2 %; White Blood Count 5.9 K/mcL (4.3-11.1)
[2021-09-06 03:00] LABS: Calcium 8.8 mg/dL (8.6-10.3); Potassium 4.5 mEq/L (3.5-5.1)
[2021-09-06] MEDS: Budesonide/Formoterol 160/4.5 1 PUFF INH IH SCH ×2 (08:13→20:32)
[2021-09-06] MEDS: Insulin LISPRO 300 UNITS/3 ML VIAL SUBQ SCH ×4 (09:00→21:11)
[2021-09-06] MEDS: Furosemide 40 MG/4 ML VIAL IVP SCH ×2 (09:28→17:53)
[2021-09-06] MEDS: allopurinoL 100 MG TABLET PO SCH (09:36)
[2021-09-06] MEDS: FLUoxetine 20 MG CAPSULE PO SCH (09:36)
[2021-09-06] MEDS: Carbidopa/Levodopa 25/100 TABLET PO SCH ×4 (09:36→21:10)
[2021-09-06] MEDS: ARIPiprazole 10 MG TABLET PO SCH (09:36)
[2021-09-06] MEDS: Ranolazine 500 MG TAB.ER.12H PO SCH ×2 (09:38→21:10)
[2021-09-06] MEDS: cloNIDine HCL 0.1 MG TABLET PO SCH ×2 (09:38→21:10)
[2021-09-06] MEDS: *HR* LORazepam 1 MG TABLET PO PRN (09:42)
[2021-09-06] MEDS: *HR* HYDROcodone/Acet 5/325 mg TABLET PO PRN (09:49)
[2021-09-06 14:30] LABS: Basophils % 0.2 %; Eosinophils # 0.2 K/mcL (0.0-0.6); Eosinophils % 2.6 %; Hematocrit 23.3 % (35.3-44.9); Hemoglobin 7.1 g/dL (11.5-15.4); Immature Granulocytes % 0.7 % (0-4); Lymphocytes # 0.7 K/mcL (0.6-4.6); Mean Corpuscular HGB Conc 30.5 g/dL (31.6-35.5); Mean Corpuscular Hemoglobin 27.3 pg (28.0-33.3); Mean Corpuscular Volume 89.6 fL (83.0-100.0); Mean Platelet Volume 10.3 fL (9.4-12.4); Monocytes # 0.5 K/mcL (0.0-1.3); Monocytes % 8.1 %; Neutrophils # 4.7 K/mcL (1.6-8.9); Platelet Count 157 K/mcL (140-400); Red Cell Distribution Width 15.6 % (11.5-14.5); Segmented Neutrophils % 77.4 %; White Blood Count 6.1 K/mcL (4.3-11.1)
[2021-09-06] MEDS: Gabapentin 300 MG CAPSULE PO SCH (21:10)
[2021-09-06] MEDS: traZODone 50 MG TABLET PO SCH (21:10)
[2021-09-06] MEDS: Insulin DETEMIR 100 UNIT/ML X5UNITS SUBQ SCH (21:11)
[2021-09-07 06:59] LABS: Basophils % 0.4 %; Eosinophils # 0.3 K/mcL (0.0-0.6); Hematocrit 24.1 % (35.3-44.9); Hemoglobin 7.3 g/dL (11.5-15.4); Immature Granulocytes % 0.8 % (0-4); Lymphocytes # 0.7 K/mcL (0.6-4.6); Lymphocytes % 13.7 %; Mean Corpuscular HGB Conc 30.3 g/dL (31.6-35.5); Mean Corpuscular Hemoglobin 27.2 pg (28.0-33.3); Mean Corpuscular Volume 89.9 fL (83.0-100.0); Mean Platelet Volume 10.2 fL (9.4-12.4); Monocytes # 0.6 K/mcL (0.0-1.3); Neutrophils # 3.6 K/mcL (1.6-8.9); Platelet Count 162 K/mcL (140-400); Red Blood Count 2.68 M/mcL (3.82-4.97); Red Cell Distribution Width 15.8 % (11.5-14.5); Segmented Neutrophils % 69.1 %; White Blood Count 5.2 K/mcL (4.3-11.1)
[2021-09-07 07:26] LABS: Calcium 8.9 mg/dL (8.6-10.3); Potassium 4.3 mEq/L (3.5-5.1)
[2021-09-07] MEDS: Budesonide/Formoterol 160/4.5 1 PUFF INH IH SCH ×2 (08:02→20:46)
[2021-09-07] MEDS: Insulin LISPRO 300 UNITS/3 ML VIAL SUBQ SCH ×4 (10:31→20:27)
[2021-09-07] MEDS: allopurinoL 100 MG TABLET PO SCH (10:43)
[2021-09-07] MEDS: Ranolazine 500 MG TAB.ER.12H PO SCH ×2 (10:43→19:29)
[2021-09-07] MEDS: Carbidopa/Levodopa 25/100 TABLET PO SCH ×4 (10:43→20:30)
[2021-09-07] MEDS: ARIPiprazole 10 MG TABLET PO SCH (10:43)
[2021-09-07] MEDS: Furosemide 40 MG/4 ML VIAL IVP SCH ×2 (10:43→16:34)
[2021-09-07] MEDS: FLUoxetine 20 MG CAPSULE PO SCH (10:43)
[2021-09-07] MEDS: *HR* HYDROcodone/Acet 5/325 mg TABLET PO PRN ×2 (10:44→16:44)
[2021-09-07] MEDS: cloNIDine HCL 0.1 MG TABLET PO SCH ×2 (10:44→19:30)
[2021-09-07 13:46] LABS: BUN/Creatinine Ratio 30 (6-26); Blood Urea Nitrogen 46 mg/dL (8-23); Calcium 9.1 mg/dL (8.6-10.3); Carbon Dioxide 27 mEq/L (23-29); Chloride 100 mEq/L (98-107); Glucose 169 mg/dL (70-105); Magnesium 1.6 mg/dL (1.6-2.6); Osmolality,Calculated 298 (280-300); Phosphorous 3.9 mg/dL (2.7-4.5); Potassium 4.3 mEq/L (3.5-5.1); Sodium 136 mEq/L (136-145); Thyroid Stimulating Hormone 2.644 mcIU/mL (0.340-5.600); Troponin I < 0.03 ng/mL (< 0.04); eGFR For African Americans 41 (> 60); eGFR For Non-African Americans 34 (> 60)
[2021-09-07] MEDS: Metoprolol XL (24 HR) Succ 25 MG TAB.ER.24H PO SCH (16:34)
[2021-09-07] MEDS: traZODone 50 MG TABLET PO SCH (19:29)
[2021-09-07] MEDS: Gabapentin 300 MG CAPSULE PO SCH (19:29)
[2021-09-07] MEDS: Insulin DETEMIR 100 UNIT/ML X5UNITS SUBQ SCH (20:27)
[2021-09-08] MEDS: *HR* HYDROcodone/Acet 5/325 mg TABLET PO PRN ×4 (00:06→22:23)
[2021-09-08 02:17] LABS: Basophils % 0.3 %; Eosinophils # 0.2 K/mcL (0.0-0.6); Eosinophils % 2.6 %; Hematocrit 23.5 % (35.3-44.9); Hemoglobin 7.3 g/dL (11.5-15.4); Immature Granulocytes % 0.5 % (0-4); Lymphocytes % 13.1 %; Mean Corpuscular HGB Conc 31.1 g/dL (31.6-35.5); Mean Corpuscular Hemoglobin 27.5 pg (28.0-33.3); Mean Corpuscular Volume 88.7 fL (83.0-100.0); Mean Platelet Volume 10.5 fL (9.4-12.4); Monocytes # 0.7 K/mcL (0.0-1.3); Monocytes % 9.9 %; Neutrophils # 5.4 K/mcL (1.6-8.9); Platelet Count 174 K/mcL (140-400); Red Blood Count 2.65 M/mcL (3.82-4.97); Red Cell Distribution Width 15.7 % (11.5-14.5); Segmented Neutrophils % 73.6 %; White Blood Count 7.3 K/mcL (4.3-11.1)
[2021-09-08 02:38] LABS: Magnesium 1.8 mg/dL (1.6-2.6); Potassium 4.1 mEq/L (3.5-5.1)
[2021-09-08] MEDS: Budesonide/Formoterol 160/4.5 1 PUFF INH IH SCH ×2 (07:40→19:47)
[2021-09-08] MEDS: Insulin LISPRO 300 UNITS/3 ML VIAL SUBQ SCH ×4 (09:00→20:48)
[2021-09-08] MEDS: FLUoxetine 20 MG CAPSULE PO SCH (09:06)
[2021-09-08] MEDS: Ranolazine 500 MG TAB.ER.12H PO SCH ×2 (09:06→19:35)
[2021-09-08] MEDS: allopurinoL 100 MG TABLET PO SCH (09:06)
[2021-09-08] MEDS: Furosemide 40 MG/4 ML VIAL IVP SCH ×2 (09:06→16:26)
[2021-09-08] MEDS: ARIPiprazole 10 MG TABLET PO SCH (09:07)
[2021-09-08] MEDS: Metoprolol XL (24 HR) Succ 25 MG TAB.ER.24H PO SCH (09:07)
[2021-09-08] MEDS: cloNIDine HCL 0.1 MG TABLET PO SCH ×2 (09:07→19:35)
[2021-09-08] MEDS: Carbidopa/Levodopa 25/100 TABLET PO SCH ×4 (09:07→19:35)
[2021-09-08] MEDS: *HR* LORazepam 1 MG TABLET PO PRN (15:11)
[2021-09-08 16:22] LABS: Influenza A PCR Negative (Negative); Influenza B PCR Negative (Negative); Resp. Syncytial Virus PCR Negative (Negative)
[2021-09-08 16:30] LABS: SARS-CoV-2 by PCR (In House) Negative (Negative)
[2021-09-08 19:35] VITALS: BP 131/49; PULSE 77; TEMP 97.4
[2021-09-08] MEDS: traZODone 50 MG TABLET PO SCH (19:35)
[2021-09-08] MEDS: Gabapentin 300 MG CAPSULE PO SCH (19:35)
[2021-09-08 19:52] VITALS: O2SAT 98
[2021-09-08] MEDS: Insulin DETEMIR 100 UNIT/ML X5UNITS SUBQ SCH (21:12)
== END 2021-09-08 22:33 | DRG 194 ==
LOC: 3ANU 03:20 → EMEROOARM 03:20 → SUATTDRO 06:13 → 3ANU 06:39 → SUATTDRO 09-04 17:34
PROVIDERS: ADMIT Internal Medicine; ATTEND Internal Medicine

== ENCOUNTER 2021-09-15 19:00 | Observation (INO) ==
[2021-09-15 20:03] LABS: Basophils % 0.5 %; Eosinophils # 0.1 K/mcL (0.0-0.6); Eosinophils % 2.3 %; Hematocrit 24.5 % (35.3-44.9); Hemoglobin 7.6 g/dL (11.5-15.4); Immature Granulocytes % 1.2 % (0-4); Lymphocytes # 0.7 K/mcL (0.6-4.6); Lymphocytes % 11.6 %; Mean Corpuscular Hemoglobin 27.6 pg (28.0-33.3); Mean Corpuscular Volume 89.1 fL (83.0-100.0); Mean Platelet Volume 10.5 fL (9.4-12.4); Monocytes # 0.4 K/mcL (0.0-1.3); Monocytes % 7.2 %; Neutrophils # 4.6 K/mcL (1.6-8.9); Platelet Count 209 K/mcL (140-400); Red Blood Count 2.75 M/mcL (3.82-4.97); Red Cell Distribution Width 16.7 % (11.5-14.5); Segmented Neutrophils % 77.2 %
[2021-09-15 20:23] LABS: Calcium 8.7 mg/dL (8.6-10.3); Potassium 4.6 mEq/L (3.5-5.1); Troponin I 0.03 ng/mL (< 0.04)
[2021-09-15] MEDS ORDERED: Furosemide 40 MG/4 ML VIAL IVP ONE (21:07)
[2021-09-15] MEDS ORDERED: Ondansetron ODT 4 MG TAB.RAPDIS SL PRN (21:33)
[2021-09-15] MEDS ORDERED: *HR* OxyCODONE Immed Rel 5 MG TABLET PO PRN (21:33)
[2021-09-15] MEDS ORDERED: Melatonin 3 MG TABLET PO PRN (21:33)
[2021-09-15] MEDS ORDERED: Naloxone 0.4 MG/ML INJ IVP PRN (21:33)
[2021-09-15] MEDS ORDERED: Acetaminophen 325 MG TABLET PO PRN (21:33)
[2021-09-15] MEDS ORDERED: *HR* Dextrose 50 % in Water (Syg) 50 ML SYRINGE IVP PRN (21:35)
[2021-09-15] MEDS ORDERED: Dextrose 4 GM Chewable Tablets PO PRN ×2 (21:35)
[2021-09-15] MEDS ORDERED: D5% in Water 1,000 ML IVC PRN (21:35)
[2021-09-15 21:55] LABS: Influenza A PCR Negative (Negative); Influenza B PCR Negative (Negative); Resp. Syncytial Virus PCR Negative (Negative)
[2021-09-15 21:56] LABS: SARS-CoV-2 by PCR (In House) Negative (Negative)
[2021-09-15] MEDS: *HR* HYDROcodone/Acet 5/325 mg TABLET PO PRN (23:16)
[2021-09-15] MEDS: traZODone 50 MG TABLET PO SCH (23:16)
[2021-09-15] MEDS: Insulin LISPRO 300 UNITS/3 ML VIAL SUBQ SCH (23:18)
[2021-09-15 23:23] LABS: Bacteria,Urine Moderate per hpf (None-Few); Bilirubin,Urine Negative (Negative); Blood,Urine Negative (Negative); Clarity,Urine Clear (Clear); Color,Urine Light-Yellow (Yellow); Glucose,Urine (UA) Normal (Normal); Ketones,Urine Negative (Negative); Leukocyte Esterase,Urine Moderate (Negative); Nitrite,Urine Positive (Negative); PH,Urine 5.5 pH Units (5.0-8.0); Protein,Urine Negative (Neg-Trace); RBC,Urine 0-3 per hpf (0-3); Specific Gravity,Urine 1.011 (1.010-1.025); Squamous Epithelial Cell,Urine Few per hpf (None-Few); Urobilinogen,Urine Normal (Normal); WBC,Urine 15-30 per hpf (0-3)
[2021-09-16] MEDS: cefTRIAXone 1,000 MG in Water for inj. (sterile) 10 ML IVP SCH (00:55)
[2021-09-16 01:33] LABS: Hematocrit 23.9 % (35.3-44.9); Hemoglobin 7.4 g/dL (11.5-15.4); Mean Corpuscular Hemoglobin 27.3 pg (28.0-33.3); Mean Corpuscular Volume 88.2 fL (83.0-100.0); Mean Platelet Volume 10.5 fL (9.4-12.4); Platelet Count 198 K/mcL (140-400); Red Blood Count 2.71 M/mcL (3.82-4.97); Red Cell Distribution Width 16.6 % (11.5-14.5); White Blood Count 5.8 K/mcL (4.3-11.1)
[2021-09-16 01:52] LABS: Calcium 8.9 mg/dL (8.6-10.3); Chol/HDL Ratio 2.4 (0-4.9); Magnesium 2.3 mg/dL (1.6-2.6); Phosphorous 4.6 mg/dL (2.7-4.5); Potassium 4.3 mEq/L (3.5-5.1)
[2021-09-16] MEDS: Insulin LISPRO 300 UNITS/3 ML VIAL SUBQ SCH ×4 (08:58→20:24)
[2021-09-16] MEDS: Aspirin Enteric Coated 81 MG Tablet PO SCH (09:22)
[2021-09-16] MEDS: Metoprolol XL (24 HR) Succ 25 MG TAB.ER.24H PO SCH (09:23)
[2021-09-16] MEDS: allopurinoL 100 MG TABLET PO SCH (09:23)
[2021-09-16] MEDS: Carbidopa/Levodopa 25/100 TABLET PO SCH ×4 (09:23→20:25)
[2021-09-16] MEDS: FLUoxetine 20 MG CAPSULE PO SCH (09:23)
[2021-09-16] MEDS: cloNIDine HCL 0.1 MG TABLET PO SCH ×2 (09:23→20:25)
[2021-09-16] MEDS: Furosemide 20 MG/2 ML VIAL IVP SCH ×2 (10:20→17:18)
[2021-09-16] MEDS ORDERED: Ipratropium/Albuterol Neb 3 ML IH PRN (11:18)
[2021-09-16] MEDS: Albumin 25% 25gram/100mL 25 GM/100 ML IV.SOLN IVPB SCH ×2 (17:18→23:06)
[2021-09-16] MEDS: traZODone 50 MG TABLET PO SCH (20:25)
[2021-09-16] MEDS: Gabapentin 300 MG CAPSULE PO SCH (20:25)
[2021-09-16] MEDS: *HR* HYDROcodone/Acet 5/325 mg TABLET PO PRN (20:30)
[2021-09-16] MEDS: *HR* LORazepam 1 MG TABLET PO PRN (23:07)
[2021-09-17 01:29] LABS: Basophils % 0.2 %; Eosinophils # 0.1 K/mcL (0.0-0.6); Eosinophils % 2.9 %; Hematocrit 21.9 % (35.3-44.9); Hemoglobin 6.9 g/dL (11.5-15.4); Immature Granulocytes % 0.4 % (0-4); Lymphocytes # 0.7 K/mcL (0.6-4.6); Lymphocytes % 13.8 %; Mean Corpuscular HGB Conc 31.5 g/dL (31.6-35.5); Mean Corpuscular Hemoglobin 27.9 pg (28.0-33.3); Mean Corpuscular Volume 88.7 fL (83.0-100.0); Mean Platelet Volume 10.1 fL (9.4-12.4); Monocytes # 0.4 K/mcL (0.0-1.3); Monocytes % 7.8 %; Neutrophils # 3.7 K/mcL (1.6-8.9); Platelet Count 184 K/mcL (140-400); Red Blood Count 2.47 M/mcL (3.82-4.97); Red Cell Distribution Width 16.5 % (11.5-14.5); Segmented Neutrophils % 74.9 %; White Blood Count 4.9 K/mcL (4.3-11.1)
[2021-09-17 01:46] LABS: Complement C3 138 mg/dL (87-200)
[2021-09-17 01:47] LABS: Calcium 9.2 mg/dL (8.6-10.3); Magnesium 2.2 mg/dL (1.6-2.6); Potassium 4.1 mEq/L (3.5-5.1)
[2021-09-17 01:49] LABS: Rheumatoid Factor < 10 IU/mL (Less than 14)
[2021-09-17 01:50] LABS: Phosphorous 4.3 mg/dL (2.7-4.5); Uric Acid 7.7 mg/dL (2.3-7.6)
[2021-09-17 02:02] LABS: Thyroid Stimulating Hormone 3.105 mcIU/mL (0.340-5.600)
[2021-09-17 02:13] LABS: Folate 14.4 ng/mL (3.0-16.0); Vitamin D 25 Hydroxy 27 ng/mL (30-80)
[2021-09-17 02:14] LABS: Vitamin B12 604 pg/mL (250-1100)
[2021-09-17 02:52] LABS: Hepatitis B Surface Antigen Nonreactive (Nonreactive)
[2021-09-17 03:21] LABS: Hepatitis C Virus Antibody Nonreactive (Nonreactive)
[2021-09-17 03:23] LABS: Hepatitis A Antibody IgM Nonreactive (Nonreactive)
[2021-09-17] MEDS ORDERED: 0.9 % Sodium Chloride 250 ML ONE (03:51)
[2021-09-17 04:32] LABS: Protein/Creatinine Ratio,Urine 0.63 mg/mg (0.00-0.20)
[2021-09-17] MEDS: Insulin LISPRO 300 UNITS/3 ML VIAL SUBQ SCH ×4 (07:46→21:28)
[2021-09-17 08:14] LABS: Hematocrit 25.3 % (35.3-44.9)
[2021-09-17] MEDS: cefTRIAXone 1,000 MG in Water for inj. (sterile) 10 ML IVP SCH (08:51)
[2021-09-17] MEDS: Albumin 25% 25gram/100mL 25 GM/100 ML IV.SOLN IVPB SCH ×2 (08:51→16:16)
[2021-09-17] MEDS: Aspirin Enteric Coated 81 MG Tablet PO SCH (08:52)
[2021-09-17] MEDS: cloNIDine HCL 0.1 MG TABLET PO SCH ×2 (08:52→21:32)
[2021-09-17] MEDS: Metoprolol XL (24 HR) Succ 25 MG TAB.ER.24H PO SCH (08:52)
[2021-09-17] MEDS: FLUoxetine 20 MG CAPSULE PO SCH (08:52)
[2021-09-17] MEDS: Carbidopa/Levodopa 25/100 TABLET PO SCH ×4 (08:53→21:33)
[2021-09-17] MEDS: allopurinoL 100 MG TABLET PO SCH (08:53)
[2021-09-17] MEDS: *HR* HYDROcodone/Acet 5/325 mg TABLET PO PRN ×2 (10:44→21:35)
[2021-09-17] MEDS: Furosemide 20 MG/2 ML VIAL IVP SCH (10:45)
[2021-09-17] MEDS: Bumetanide 1 MG TABLET PO SCH (16:16)
[2021-09-17] MEDS ORDERED: Oxymetazoline Nasal SPRAY BOTTLE 15ML NS PRN (19:03)
[2021-09-17] MEDS: Budesonide/Formoterol 160/4.5 1 PUFF INH IH SCH (20:28)
[2021-09-17] MEDS: traZODone 50 MG TABLET PO SCH (21:32)
[2021-09-17] MEDS: Ranolazine 500 MG TAB.ER.12H PO SCH (21:32)
[2021-09-17] MEDS: Gabapentin 300 MG CAPSULE PO SCH (21:32)
[2021-09-18] MEDS: *HR* LORazepam 1 MG TABLET PO PRN (02:05)
[2021-09-18] MEDS: *HR* HYDROcodone/Acet 5/325 mg TABLET PO PRN ×3 (05:13→21:09)
[2021-09-18] MEDS: Insulin LISPRO 300 UNITS/3 ML VIAL SUBQ SCH ×4 (07:47→20:33)
[2021-09-18] MEDS: Aspirin Enteric Coated 81 MG Tablet PO SCH (08:05)
[2021-09-18] MEDS: cefTRIAXone 1,000 MG in Water for inj. (sterile) 10 ML IVP SCH (08:05)
[2021-09-18] MEDS: ARIPiprazole 10 MG TABLET PO SCH (08:05)
[2021-09-18] MEDS: FLUoxetine 20 MG CAPSULE PO SCH (08:05)
[2021-09-18] MEDS: Metoprolol XL (24 HR) Succ 25 MG TAB.ER.24H PO SCH (08:06)
[2021-09-18] MEDS: Carbidopa/Levodopa 25/100 TABLET PO SCH ×4 (08:06→21:09)
[2021-09-18] MEDS: allopurinoL 100 MG TABLET PO SCH (08:06)
[2021-09-18] MEDS: Bumetanide 1 MG TABLET PO SCH ×2 (08:06→16:09)
[2021-09-18] MEDS: Ascorbic Acid 500 MG TABLET PO SCH (08:06)
[2021-09-18] MEDS: Cholecalciferol (D-3) 1,000 UNIT (25MCG) TABLET PO SCH (08:06)
[2021-09-18] MEDS: Ranolazine 500 MG TAB.ER.12H PO SCH ×2 (08:06→21:08)
[2021-09-18] MEDS: cloNIDine HCL 0.1 MG TABLET PO SCH ×2 (08:06→21:08)
[2021-09-18 08:29] LABS: Hematocrit 26.2 % (35.3-44.9); Hemoglobin 8.6 g/dL (11.5-15.4); Mean Corpuscular HGB Conc 32.8 g/dL (31.6-35.5); Mean Corpuscular Volume 88.2 fL (83.0-100.0); Mean Platelet Volume 10.1 fL (9.4-12.4); Platelet Count 189 K/mcL (140-400); Red Blood Count 2.97 M/mcL (3.82-4.97); Red Cell Distribution Width 16.6 % (11.5-14.5); White Blood Count 5.3 K/mcL (4.3-11.1)
[2021-09-18 08:48] LABS: Calcium 9.5 mg/dL (8.6-10.3); Potassium 3.9 mEq/L (3.5-5.1)
[2021-09-18] MEDS: Budesonide/Formoterol 160/4.5 1 PUFF INH IH SCH ×2 (09:57→19:55)
[2021-09-18] MEDS: Gabapentin 300 MG CAPSULE PO SCH (21:08)
[2021-09-18] MEDS: traZODone 50 MG TABLET PO SCH (21:09)
[2021-09-19] MEDS: *HR* LORazepam 1 MG TABLET PO PRN (06:17)
[2021-09-19] MEDS: Insulin LISPRO 300 UNITS/3 ML VIAL SUBQ SCH ×3 (07:22→16:19)
[2021-09-19] MEDS: Budesonide/Formoterol 160/4.5 1 PUFF INH IH SCH (08:10)
[2021-09-19] MEDS: ARIPiprazole 10 MG TABLET PO SCH (08:19)
[2021-09-19] MEDS: Cholecalciferol (D-3) 1,000 UNIT (25MCG) TABLET PO SCH (08:19)
[2021-09-19] MEDS: Ranolazine 500 MG TAB.ER.12H PO SCH (08:20)
[2021-09-19] MEDS: FLUoxetine 20 MG CAPSULE PO SCH (08:20)
[2021-09-19] MEDS: Metoprolol XL (24 HR) Succ 25 MG TAB.ER.24H PO SCH (08:20)
[2021-09-19] MEDS: *HR* HYDROcodone/Acet 5/325 mg TABLET PO PRN ×2 (08:20→16:19)
[2021-09-19] MEDS: allopurinoL 100 MG TABLET PO SCH (08:20)
[2021-09-19] MEDS: Carbidopa/Levodopa 25/100 TABLET PO SCH ×3 (08:20→16:19)
[2021-09-19] MEDS: Aspirin Enteric Coated 81 MG Tablet PO SCH (08:20)
[2021-09-19] MEDS: cloNIDine HCL 0.1 MG TABLET PO SCH (08:20)
[2021-09-19] MEDS: Bumetanide 1 MG TABLET PO SCH ×2 (08:20→16:19)
[2021-09-19] MEDS: cefTRIAXone 1,000 MG in Water for inj. (sterile) 10 ML IVP SCH (08:21)
[2021-09-19] MEDS: Ascorbic Acid 500 MG TABLET PO SCH (08:21)
[2021-09-19 10:43] LABS: Kappa Qnt Free Light Chains 122.75 mg/L (3.30-19.40); Lambda Qnt Free Light Chains 71.92 mg/L (5.71-26.30)
[2021-09-19 11:22] LABS: Influenza A PCR Negative (Negative); Influenza B PCR Negative (Negative); Resp. Syncytial Virus PCR Negative (Negative)
[2021-09-19 11:23] LABS: SARS-CoV-2 by PCR (In House) Negative (Negative)
[2021-09-19 12:39] LABS: Hematocrit 27.3 % (35.3-44.9); Hemoglobin 8.5 g/dL (11.5-15.4); Mean Corpuscular HGB Conc 31.1 g/dL (31.6-35.5); Mean Corpuscular Hemoglobin 27.7 pg (28.0-33.3); Mean Corpuscular Volume 88.9 fL (83.0-100.0); Mean Platelet Volume 10.1 fL (9.4-12.4); Platelet Count 175 K/mcL (140-400); Red Blood Count 3.07 M/mcL (3.82-4.97); Red Cell Distribution Width 16.9 % (11.5-14.5); White Blood Count 5.9 K/mcL (4.3-11.1)
[2021-09-19 14:19] LABS: Calcium 9.2 mg/dL (8.6-10.3); Potassium 3.9 mEq/L (3.5-5.1)
[2021-09-19 14:37] VITALS: BP 177/84; PULSE 79; TEMP 98.1; O2SAT 94
[2021-09-19 14:52] LABS: Urine Collection Volume NOT PROVIDED mL
[2021-09-20 08:22] LABS: Alpha 2 Globulin (PEP) 0.75 g/dL (0.48-1.05); Beta Globulin (PEP) 1.03 g/dL (0.48-1.10)
[2021-09-20 10:22] LABS: IFE Reflexed NOT DONE
== END 2021-09-19 18:22 ==
LOC: 3BNU 19:00 → EMEROOARM 19:00 → SUATTDRO 21:37 → 3BNU 22:13
PROVIDERS: ADMIT Family Medicine; ATTEND Family Medicine